=== PATIENT | female | born 1970 | race Caucasian/White ===

== ENCOUNTER 2018-01-01 21:23 | Inpatient (IN) | payer BC ==
[2018-01-01 23:09] LABS: #Basophils 0.1 thou/uL (0.0-0.2); #Eosinphils 0.2 thou/uL (0.0-0.7); #Lymphocytes 2.6 thou/uL (1.20-3.40); #Monocytes 0.6 thou/uL (0.11-0.59); #Neutrophils 5.4 thou/uL (1.40-6.50); %Basophils 0.7 % (0.0-1.0); %Eosinophils 2.6 % (0.0-10.0); %Lymphocytes 29.2 % (21.0-51.0); %Neutrophils 60.5 % (42.0-75.0); Hemoglobin 16.1 g/dL (12.0-16.0); Mean Corpuscular HGB CONC 35.5 g/dL (32.0-36.0); Mean Corpuscular Hemoglobin 31.1 pg (27.0-31.0); Mean Corpuscular Volume 87.6 fl (81.0-99.0); Mean Platelet Volume 8.7 fL (7.4-10.4); Platelet Count 288 thou/uL (130-400); RBC Distribution Width 12.8 % (11.5-14.5); Red Blood Cell (RBC) Count 5.17 mill/uL (4.20-5.40); White Blood Cell (WBC) Count 8.9 thou/uL (4.8-10.8)
[2018-01-01 23:20] LABS: ALT (SGPT) 42 U/L (8-55); AST (SGOT) 42 U/L (5-34); Albumin 3.4 g/dL (3.5-5.0); Alkaline Phosphatase 93 U/L (40-150); Anion Gap 17 mmol/L (10-20); BUN (Urea Nitrogen) 10 mg/dL (7.0-18.7); Bilirubin, Total Less than 0.2 mg/dL (0.2-1.2); Calc. Creatinine Clearance 0 mL/min (70-130); Calcium 9.6 mg/dL (7.8-10.44); Carbon Dioxide 25 mmol/L (22-29); Chloride 97 mmol/L (98-107); Estimated GFR-MDRD 78; Globulin 3.7 g/dL (2.4-3.5); Glucose 328 mg/dL (70-105); Potassium 4.5 mmol/L (3.5-5.1); Protein, Total 7.1 g/dL (6.0-8.3); Sodium 134 mmol/L (136-145)
[2018-01-02] MEDS ORDERED: Promethazine HCl 25 MG/ML VIAL ONE (00:13)
[2018-01-02] MEDS ORDERED: Labetalol HCl 100 MG/20 ML VIAL ONE (00:13)
[2018-01-02 00:48] LABS: Bilirubin Negative (Negative); Blood, Urine Moderate (Negative); Clarity CLEAR (Clear); Glucose, Urine (Dipstick) >=1000 mg/dL (Negative); Leukocyte Negative (Negative); Nitrite Negative (Negative); Protein, Urine (Dipstick) 300 mg/dL (Neg-Trace); Specific Gravity, Urine 1.019 (1.002-1.036); Urobilinogen 0.2 mg/dL (0.2-1.0)
[2018-01-02 00:51] LABS: Bacteria/HPF None Seen HPF (None Seen); Hyaline Casts/LPF 0-3 HYALINE CAST LPF (0-3 Hyaline); Squamous Epithelial 0-3 HPF (0-3); WBC/HPF None Seen HPF (0-3)
[2018-01-02 03:36] VITALS: BMI 26.0
[2018-01-02] MEDS ORDERED: Ondansetron ODT 4 MG TAB PO PRN (03:53)
[2018-01-02] MEDS ORDERED: Dextrose 5% in Water 1,000 ML IV PRN (03:53)
[2018-01-02] MEDS ORDERED: Labetalol HCl 100 MG/20 ML VIAL SLOW IVP PRN (03:53)
[2018-01-02] MEDS ORDERED: Dextrose 50% Abboject 50 ML SYRINGE SLOW IVP PRN (03:53)
[2018-01-02] MEDS ORDERED: Fioricet 325/50/40 mg Tablet PO PRN (03:53)
[2018-01-02] MEDS ORDERED: Promethazine 25 MG TAB PO PRN ×2 (04:24)
--- NOTE | 2018-01-02 04:28 | PDOC.FPRHP ---
- History of Present Illness Chief Complaint: JUÁREZ, N/V History of Present Illness: Patient is a 47yo with PMH of T2DM, HTN, CAD s/p CABG, and HLD who presents with 10 day hx of worsening JUÁREZ associated with N/V. She was seen at [facility] several days ago for JUÁREZ, where they did CT of her head and found nothing. She went home with Tylenol #3 and phenergan which didn't seem to help any. She was seen in the clinic on 01/01/18 and told that if pain worsened to come to ED. Pain is 10/10 on initial evaluation by ED physician. Pain is 8/10 at my evaluation. Pain is located at L frontal region and radiates to R frontal region on occasion and behind her L eye. Pain is throbbing in nature and worsened by lights, sounds, and ragland movements. She has no hx of migraines. She does have diagnosis of HTN though and was elevated in clinic today to 170 systolic and again elevated to 213 systolic on admission. She denies neck stiffness, vision changes, and fever. In regard to her N/V, she has not eaten in the past couple of days, and has also not taken her medication due to the N/ V. ED Course: Labetalol 10mg and Phenergan 12.5mg - Allergies/Adverse Reactions Allergies Allergy/AdvReac Type Severity Reaction Status Date / Time acetaminophen [From Vicodin] Allergy Nausea Verified 01/02/18 03:04 hydrocodone Allergy Nausea Verified 01/02/18 03:04 tramadol Allergy Nausea Verified 01/02/18 03:04 - Home Medications Medication Instructions Recorded Confirmed Type Amitriptyline HCl [Elavil] 50 mg PO HS 01/02/18 01/02/18 History Aspirin [Ecotrin] 81 mg PO DAILY 01/02/18 01/02/18 History Atorvastatin Calcium 40 mg PO HS 01/02/18 01/02/18 History Carvedilol [Coreg] 3.125 mg PO BID 01/02/18 01/02/18 History Gabapentin 600 mg PO TID 01/02/18 01/02/18 History Insulin Detemir 100 UNITS/ML 20 units SQ HS 01/02/18 01/02/18 History [Levemir] Lisinopril 2.5 mg PO DAILY 01/02/18 01/02/18 History Metronidazole [metroNIDAZOLE] 500 mg PO TID 01/02/18 01/02/18 History Pedi MV No.79/Ferrous Fumarate 1 tablet PO DAILY 01/02/18 01/02/18 History [Flintstones with Iron Chewable Tablet] Prasugrel HCl 10 mg PO QAM 01/02/18 01/02/18 History Promethazine [Phenergan] 25 mg PO Q6HR PRN 01/02/18 01/02/18 History metFORMIN [Glucophage] 500 mg PO BID-WM 01/02/18 01/02/18 History - History PMHx: PSHx: FHx: Social: - Review of Systems General: denies: fever/chills, weight/appetite/sleep changes, night sweats, fatigue Eyes: denies: eye pain, vision changes ENT: denies: nasal congestion, rhinorrhea Respiratory: denies: cough, congestion, shortness of breath Cardiovascular: denies: chest pain, palpitation, edema Gastrointestinal: reports: nausea, vomiting, diarrhea. denies: abdominal pain Genitourinary: reports: incontinence (occasional bowel incontinence with diarrhea). denies: dysuria, polyuria Skin: denies: rashes, lesions Musculoskeletal: reports: pain (JUÁREZ). denies: tenderness, stiffness, swelling, arthritis/arthralgias Neurological: denies: numbness, syncope, seizure Psychological: denies: anxiety, depression - Vital signs BP: 141/88 HR: 92 RR: 20 Tmax: 98.1 Pox: 98% on RA Wt: 75kg - Physical Exam Constitutional: NAD, awake, alert and oriented, well developed -Constitutional: Pain evident with movements, patient closing eyes due to light. HEENT: normocephalic and atraumatic, PERRLA, EOMI, conjunctiva clear, no scleral icterus, grossly normal vision, grossly normal hearing, MMM, oropharynx clear -HEENT: no sinus tenderness Neck: supple, FROM, no LAD Heart: RRR, normal S1/S2, no murmurs/rubs/gallops, pulses present Lungs: CTAB, no respiratory distress, good air movement, no wheezing Abdomen: soft, non-tender, bowel sounds present Musculoskeletal: normal structure, normal tone Neurological: no focal deficit, CN II-XII intact, normal sensation Skin: no rash/lesions, good turgor, capillary refill <2 seconds Psychiatric: normal mood and affect FMR H&P: Results - Labs Result Diagrams: 01/01/18 22:40 01/02/18 07:32 Lab results: WBC 8.9 thou/uL (4.8-10.8) 01/01/18 22:40 Hgb 16.1 g/dL (12.0-16.0) H 01/01/18 22:40 Hct 45.3 % (36.0-47.0) 01/01/18 22:40 MCV 87.6 fl (81.0-99.0) 01/01/18 22:40 Plt Count 288 thou/uL (130-400) 01/01/18 22:40 Neutrophils % 60.5 % (42.0-75.0) 01/01/18 22:40 Sodium 134 mmol/L (136-145) L 01/01/18 22:40 Potassium 4.5 mmol/L (3.5-5.1) 01/01/18 22:40 Chloride 97 mmol/L (98-107) L 01/01/18 22:40 Carbon Dioxide 25 mmol/L (22-29) 01/01/18 22:40 BUN 10 mg/dL (7.0-18.7) 01/01/18 22:40 Creatinine 0.79 mg/dL (0.6-1.1) 01/01/18 22:40 Glucose 328 mg/dL (70-105) H 01/01/18 22:40 Calcium 9.6 mg/dL (7.8-10.44) 01/01/18 22:40 Total Bilirubin Less than 0.2 mg/dL (0.2-1.2) L 01/01/18 22:40 AST 42 U/L (5-34) H 01/01/18 22:40 ALT 42 U/L (8-55) 01/01/18 22:40 Alkaline Phosphatase 93 U/L (40-150) 01/01/18 22:40 C-Reactive Protein Less than 0.50 mg/dL (= or < 0.5) 01/01/18 22:40 Serum Total Protein 7.1 g/dL (6.0-8.3) 01/01/18 22:40 Albumin 3.4 g/dL (3.5-5.0) L 01/01/18 22:40 Urine Ketones Negative mg/dL (Negative) 01/02/18 00:05 Urine Blood Moderate (Negative) H 01/02/18 00:05 Urine Nitrite Negative (Negative) 01/02/18 00:05 Ur Leukocyte Esterase Negative (Negative) 01/02/18 00:05 Urine RBC 11-20 HPF (0-3) H 01/02/18 00:05 Urine WBC None Seen HPF (0-3) 01/02/18 00:05 Ur Squamous Epith Cells 0-3 HPF (0-3) 01/02/18 00:05 Urine Bacteria None Seen HPF (None Seen) 01/02/18 00:05 FMR H&P: A/P - Problem List (1) Hypertensive urgency Current Visit: Yes Status: Acute Code(s): I16.0 - HYPERTENSIVE URGENCY (2) Migraine Current Visit: Yes Status: Acute Code(s): G43.909 - MIGRAINE, UNSP, NOT INTRACTABLE, WITHOUT STATUS MIGRAINOSUS (3) DM type 2 (diabetes mellitus, type 2) Current Visit: No Status: Chronic Qualifiers: Diabetes mellitus terminal superintendent insulin use: without terminal superintendent use Diabetes mellitus complication status: with unspecified complications Qualified Code(s) : E11.8 - Type 2 diabetes mellitus with unspecified complications (4) Hyperlipidemia Current Visit: Yes Status: Acute Code(s): E78.5 - HYPERLIPIDEMIA, UNSPECIFIED (5) CAD (coronary artery disease) Current Visit: Yes Status: Acute Code(s): I25.10 - ATHSCL HEART DISEASE OF [place] CORONARY ARTERY W/O ANG PCTRS (6) Diabetic neuropathy Current Visit: Yes Status: Acute Code(s): E11.40 - TYPE 2 DIABETES MELLITUS WITH DIABETIC NEUROPATHY, UNSP (7) Hypertension Current Visit: Yes Status: Acute Code(s): I10 - ESSENTIAL (PRIMARY) HYPERTENSION (8) Nausea & vomiting Current Visit: Yes Status: Acute Code(s): R11.2 - NAUSEA WITH VOMITING, UNSPECIFIED (9) Hematuria Current Visit: Yes Status: Acute Code(s): R31.9 - HEMATURIA, UNSPECIFIED - Plan Hypertensive Urgency - s/p Labetalol x2 - will continue to monitor and increase home meds as discussed below. Migraine without Aura - Fioricet prn - recent CThead done at [facility] without any findings - if fevers consider LP, but not indicated at this time. N/V - Patient not tolerating PO intake, will give maitenance fluids - Zofran prn HTN - increase Lisinopril to 5mg daily and monitor - continue other home medications T2DM - continue home levemir - ACHS accuchecks CAD s/p stent - continue prasugrel Diabetic Neuropathy - Continue Gabapentin Hematuria - No PE signs of nephrolithiasis S/P BKA - patient reports she is supposed to be on prophylactic Abx, but hasn't been taking them per ER physician at the [facility] - continue to hold Abx and have patient call surgeons office - Wound care consult for BID dressing changes Disposition/LOS: Length of hospital stay: < 2 days Likely d/c once HTN well controlled and JUÁREZ pain lessened. FMR H&P: Upper Level - Pertinent history PCP - Angel Crocker at [facility] Time Seen: 01/02/18 at 0210 CC: Headache Patient is a 47 year old white female who presents complaining of headache associated with nausea and vomiting which has been going on for about 10 days. She describes it as a frontal pressure like headache that has not changed much. She does not check her blood pressure at home and says she does not normally have high blood pressure. She reports occasionally feeling feverish but has not taken her temperature. She denies fevers, chills, visual disturbance, URI symptoms, chest pain, dyspnea, cough, wheezing, abdominal pain, dysuria, and polyuria. She reports chronic diarrhea (noted to have fecal incontinence in clinic records). In the ER she was seen by Dr. Osullivan, her BP was noted to be 213/106 (MAP 142) and 194/128 (MAP 150) at 2126 and 2231 respectively. She was given a dose of labetalol 10 mg iv at 00:09. Another dose was given at 01:08. Patient's BP was 166/106 (MAP 126) at 00:48 prior to second dose of labetalol. PMH - HTN, DM2, HLD, CAD, diabetic neuropathy, migraine headaches, nausea, vomiting, fecal incontinence with fecal urgency, stress urinary incontinence. PSH - Right BKA, hysterectomy, cholecystectomy, cardiac catherization with stent - Pertinent findings Vital Signs Tmax 98.1 RR 20 HR 91 BP 163/99 O2 sat 96% on RA Weight 79.38 kg Physical Exam: General: NAD, AAOx4. Eyes: EOMI, PERRL, nonicteric. Conjunctiva clear. ENT: Mucous membranes moist, oropharynx clear. Poor dentition CV: RRR. No murmurs, rubs or gallops auscultated. Pulses full equal in upper extremities Respiratory: CTAB, no wheezing, rales, or rhonchi. Nonlabored Abdomen: NT, ND, no guarding or rebound. No palpable or pulsating masses Extremities: No edema. Equal movements in all 4 extremities Right BKA Skin: No rash or ulcer. No palpable lesions Neuro: CN II - XII grossly intact. No focal deficits Psych: Mood and affect appropriate. Judgement and insight intact - Plan Date/Time: 01/02/18426 I, Benton Swanson DO, have evaluated this patient and agree with findings/plan as outlined by exercise science internship resident. Pertinent changes/additions are listed here. 47 year old white female presents with: 1) Hypertensive urgency - Admit to telemetry. Will shoot for gradual reduction of MAP by 25% in first 24 hours. MAP was as high as 150 before treatment in ED - 25% reduction would be 112. No evidence of end organ damage. May have been cause of headache 2) Intractable headache - Hypertensive urgency vs migraine without aura. Patient does have a history of migraines. Associated symptoms include nausea, vomiting, and photophobia. She reported mild improvement with treatment of blood pressure. 3) Hyponatremia - Mild. Repeat BMP in the morning 4) Diabetes mellitus type 2 - Home meds. Accuchecks, sliding scale insulin 5) CAD - Home meds (aspirin and prasugrel) 6) Hypertension - Home meds. Will need to be titrated up. 7) Hyperlipidemia - Home statin 8) Code status - Full
[2018-01-02] MEDS: Sodium Chloride 0.9% 1,000 ML IV SCH ×2 (04:47→13:49)
[2018-01-02 07:57] LABS: Anion Gap 12 mmol/L (10-20); BUN (Urea Nitrogen) 10 mg/dL (7.0-18.7); Calc. Creatinine Clearance 107 mL/min (70-130); Carbon Dioxide 27 mmol/L (22-29); Chloride 102 mmol/L (98-107); Estimated GFR-MDRD 80; Glucose 306 mg/dL (70-105); Potassium 3.5 mmol/L (3.5-5.1); Sodium 137 mmol/L (136-145)
[2018-01-02] MEDS: Aspirin 81 mg Enteric Coated Tablet PO SCH (08:44)
[2018-01-02] MEDS: Lisinopril 5 MG TAB PO SCH (08:44)
[2018-01-02] MEDS: Gabapentin 300 MG CAP PO SCH ×3 (08:44→20:04)
[2018-01-02] MEDS: metFORMIN 500 MG TAB PO SCH ×2 (08:44→17:05)
[2018-01-02] MEDS: Prasugrel 10 MG TAB PO SCH (08:45)
[2018-01-02] MEDS: Enoxaparin Sodium 40 MG/0.4 ML SYRINGE SC SCH (08:45)
[2018-01-02] MEDS: Insulin Detemir 100 UNITS/ML 20 UNITS in Admixture Fee 1 EACH SC SCH (08:56)
[2018-01-02] MEDS ORDERED: Carvedilol 3.125 MG TAB PO SCH (09:00)
[2018-01-02] MEDS ORDERED: Lisinopril 2.5 MG TAB PO SCH (09:00)
[2018-01-02] MEDS ORDERED: SUMAtriptan Succinate 25 MG TAB PO SCH (09:15)
[2018-01-02] MEDS ORDERED: Metoclopramide HCl 10 MG/2 ML VIAL IVP SCH (09:30)
[2018-01-02] MEDS ORDERED: Ketorolac Tromethamine 30 MG/ML VIAL IVP SCH ×2 (09:30→20:30)
[2018-01-02] MEDS ORDERED: diphenhydrAMINE 50 MG CAP PO SCH (09:30)
--- NOTE | 2018-01-02 11:53 | HP ---
I have reviewed the history and physical of Dr. Cinda Moreno. I have reviewed the case with her. I jessie do with her assessment and plan. HISTORY: Briefly, Ms. Pizarro is a 47-year-old white female with a history of type 2 diabetes, hyperten tulio, and coronary artery disease who presented with worsening headache associated with some nausea a nd vomiting. She was also noted to have a blood pressure of 220/110. She was admitted with hyperten sive urgency. She has been medicated and blood pressure is now nearing upper limits of normal. PHYSICAL EXAMINATION: GENERAL: She is awake, alert, in no distress. Still complaining of a slight headache, although not as severe as previously. VITAL SIGNS: Currently, her blood pressure is 150/73, pulse rate is 88, respirations 14. She is afe brile. ENT: No erythema or exudate. NECK: Supple. No JVD. CARDIAC: Heart rhythm regular. S4 gallop. No murmur or rub noted. LUNGS: Clear, without rales or wheezes. ABDOMEN: Flat and soft. No guarding, rebound or rigidity. NEUROLOGIC: No focal deficits noted. LABORATORY DATA: CBC: White count 8900, hemoglobin 16.1, hematocrit 45.3. Chemistry: Sodium 134, potassium 4.5, chloride 97, bicarbonate 25, BUN 10, creatinine 0.79, glucose 328. ASSESSMENT: Hypertensive urgency already improving. PLAN: Restart and adjust p.o. medications.
[2018-01-02] MEDS: HumaLOG 300 UNITS/3 ML VIAL SC PRN ×2 (13:48→17:10)
[2018-01-02] MEDS: metroNIDAZOLE 500 MG TAB PO SCH ×2 (15:33→20:03)
[2018-01-02] MEDS: Carvedilol 6.25 MG TAB PO SCH (17:05)
[2018-01-02] MEDS: Sulfameth/Trimethoprim DS 800-160mg TAB PO SCH (20:04)
[2018-01-02] MEDS ORDERED: Metoclopramide HCl 10 MG TAB PO SCH (20:30)
[2018-01-02] MEDS ORDERED: Insulin Detemir 100 UNITS/ML 20 UNITS in Admixture Fee 1 EACH SC SCH (21:00)
[2018-01-02] MEDS ORDERED: Amitriptyline HCl 25 MG TAB PO SCH (21:00)
[2018-01-02] MEDS ORDERED: Atorvastatin Calcium 40 MG TAB PO SCH (21:00)
[2018-01-03] MEDS: Acetaminophen 325 MG TAB PO PRN ×2 (01:09→11:35)
[2018-01-03] MEDS: Sodium Chloride 0.9% 1,000 ML IV SCH ×3 (02:30→13:25)
[2018-01-03] MEDS ORDERED: Ketorolac Tromethamine 30 MG/ML VIAL IVP PRN (05:35)
[2018-01-03] MEDS ORDERED: Metoclopramide HCl 10 MG/2 ML VIAL IVP PRN (05:39)
[2018-01-03] MEDS ORDERED: Clopidogrel Bisulfate 75 MG TAB ONE (06:24)
--- NOTE | 2018-01-03 08:18 | PDOC.FM ---
- Subjective Subjective: Pt reports headache pain rated at 3. This is much improved from yesterday. Reports having some diarrhea as well at this time. Denies any extreme abdominal pain. No chest pain or acute SOB. No other acute events overnight - Objective MAR Reviewed: Yes Vital Signs & Weight: Vital Signs (12 hours) Temp Pulse Resp BP Pulse Ox 01/03/18 03:57 97.6 F 71 16 129/62 97 Weight Admit Weight 75.478 kg Weight 78.471 kg I&O: 01/02/18 01/03/18 01/04/18 06:59 06:59 06:59 Intake Total 110 1920 Output Total 0 600 Balance 110 1320 Result Diagrams: 01/01/18 22:40 01/02/18 07:32 EKG Reviewed by me: Yes Radiology Reviewed by me: Yes (outside CT negative) Phys Exam - Physical Examination Constitutional: NAD HEENT: PERRLA, moist MMs, sclera anicteric Neck: no nodes, supple, full ROM Respiratory: no wheezing, no rales, no rhonchi, clear to auscultation bilateral Cardiovascular: RRR, no significant murmur, no rub Gastrointestinal: soft, non-tender, no distention hyperactive bowel sounds Musculoskeletal: no edema, pulses present Neurological: non-focal, normal sensation, moves all 4 limbs Lymphatic: no nodes Psychiatric: normal affect, A&O x 3 Skin: no rash, normal turgor, cap refill <2 seconds Dx/Plan (1) C. difficile diarrhea Code(s): A04.72 - ENTEROCOLITIS D/T CLOSTRIDIUM DIFFICILE, NOT SPCF RECUR Status: Acute (2) Hypertensive urgency Code(s): I16.0 - HYPERTENSIVE URGENCY Status: Acute (3) Migraine Code(s): G43.909 - MIGRAINE, UNSP, NOT INTRACTABLE, WITHOUT STATUS MIGRAINOSUS Status: Acute (4) Hyperlipidemia Code(s): E78.5 - HYPERLIPIDEMIA, UNSPECIFIED Status: Acute (5) CAD (coronary artery disease) Code(s): I25.10 - ATHSCL HEART DISEASE OF [place] CORONARY ARTERY W/O ANG PCTRS Status: Acute (6) Diabetic neuropathy Code(s): E11.40 - TYPE 2 DIABETES MELLITUS WITH DIABETIC NEUROPATHY, UNSP Status: Acute (7) Hypertension Code(s): I10 - ESSENTIAL (PRIMARY) HYPERTENSION Status: Acute - Plan Plan: Hypertensive Urgency - Increased carvedilol and lisinopril yesterday. BP lowered. Labetolol PRN Migraine without Aura - Fioricet prn -Headache Cocktail- Toradol, Reglan and Benadryll one time has decreased headache. -Will now try topamax as well for outpatient tx - recent CThead done at [facility] without any findings -BP lowered as well N/V/Diarrhea -C. diff positive.- on flagyl for wound. Will add on PO vanc at this time. Will continue to replace electrolytes as needed - Zofran prn HTN -Lisinopril and Carvediolo increased. BP lower and stable overnight - continue other home medications - T2DM - continue home levemir - ACHS accuchecks CAD s/p stent - continue prasugrel Diabetic Neuropathy - Continue Gabapentin Hematuria - No PE signs of nephrolithiasis S/P BKA - Restarted home abx flagyl and bactrim at this time - Wound care consult for BID dressing changes
[2018-01-03] MEDS: metroNIDAZOLE 500 MG TAB PO SCH ×2 (08:59→16:37)
[2018-01-03] MEDS: metFORMIN 500 MG TAB PO SCH (08:59)
[2018-01-03] MEDS ORDERED: FLUoxetine HCl 10 MG CAP PO SCH (09:00)
[2018-01-03] MEDS: Carvedilol 6.25 MG TAB PO SCH (09:00)
[2018-01-03] MEDS ORDERED: Topiramate 25 MG TAB PO SCH (09:00)
[2018-01-03] MEDS: Vancomycin HCl 25 MG/ML Oral PO SCH ×2 (09:08→13:26)
[2018-01-03] MEDS: Lisinopril 5 MG TAB PO SCH (09:08)
[2018-01-03] MEDS: Gabapentin 300 MG CAP PO SCH ×2 (09:08→16:37)
[2018-01-03] MEDS: HumaLOG 300 UNITS/3 ML VIAL SC PRN ×2 (09:09→13:25)
[2018-01-03] MEDS: Enoxaparin Sodium 40 MG/0.4 ML SYRINGE SC SCH (09:09)
[2018-01-03] MEDS: Sulfameth/Trimethoprim DS 800-160mg TAB PO SCH (09:10)
[2018-01-03] MEDS: Prasugrel 10 MG TAB PO SCH (09:10)
[2018-01-03] MEDS: Aspirin 81 mg Enteric Coated Tablet PO SCH (09:11)
[2018-01-03] MEDS: Insulin Detemir 100 UNITS/ML 20 UNITS in Admixture Fee 1 EACH SC SCH (09:33)
--- NOTE | 2018-01-03 12:30 | ADD-PRG ---
DATE OF SERVICE: 01/03/2018 ADDENDUM This is an addendum to the note of Dr. Tyler Butler. SUBJECTIVE: Ms. Pizarro looks and feels much better this morning. She has only a very slight headache. She is anxious for discharge. She was having some diarrhea and was C. diff antigen positive, but t oxin negative. This could be followed up as an outpatient in several days. In the event, she is loo rosanna and feeling much better and will be discharged today.
[2018-01-03 12:51] VITALS: BP 149/72; TEMP 98
--- NOTE | 2018-01-04 12:47 | DIS-2 ---
DATE OF ADMISSION: 01/02/2018 DATE OF DISCHARGE: 01/03/2018 ADMITTING ATTENDING: Dr. Guillermo Jordan DISCHARGE ATTENDING: Dr. Guillermo Jordan CONSULTATIONS: None. PROCEDURES: None. IMAGING: None. PRIMARY DIAGNOSES: 1. Hypertensive urgency. 2. Intractable migraine. 3. Hyperlipidemia. 4. Coronary artery disease. 5. Diabetic neuropathy. 6. Hypertension. 7. Clostridium difficile antigen diarrhea. DISCHARGE CHANGES IN MEDICATIONS: We increased her carvedilol to 6.25 mg started her medications. 1. Amitriptyline 50 mg p.o. at bedtime. 2. Aspirin 81 mg p.o. daily. 3. Atorvastatin 40 mg p.o. at bedtime. 4. Gabapentin 600 mg p.o. t.i.d. 5. Insulin 20 units in the morning and 20 units at night, and that is Detemir and Levemir. 6. Metformin 500 mg p.o. b.i.d. 7. Metronidazole 500 mg p.o. t.i.d. 8. Flintstones with iron chewable tablet 1 tablet daily. 9. Prasugrel HCL 20 mg p.o. q.a.m. 10. Promethazine 25 mg p.o. q.6 hours. 11. Bactrim 1 tab p.o. b.i.d. 12. Topiramate 25 mg p.o. b.i.d. DISCONTINUED MEDICATIONS: Fioricet, Toradol, Benadryl, and Reglan. HISTORY OF PRESENT ILLNESS AND BRIEF HOSPITAL COURSE: This is a 47-year-old with past medical histor y of type 2 diabetes, hypertension, coronary artery disease, status post CABG and hyperlipidemia with also a recent surgery of below the knee amputation who presents with a 10-day history of headache wi th nausea and vomiting. She was seen at [facility] earlier in the week where they did a CT of the head which was negative. She then came to a clinic, was at an outside clinic where they tried giving Zofr an as well for the vomiting. She says the headache was in the right frontal region and behind her le ft eye was throbbing in nature and worsened in lights. When we admitted her, her blood pressure was 163/99. At one point, her blood pressure was above the 200s. At this time she was admitted with hy pertensive urgency with the intractable migraine. At this time, we gave her some labetalol and lower ed her blood pressure. Then while she was here, her blood pressures stayed pretty elevated around 18 . At this time, her blood pressures were somewhat elevated, so we increased her carvedilol from 3.125 to 6.125 mg. The Fioricet she got did not help her headache upon admission, so then we gave he r a headache cocktail which included Toradol, Reglan and Benadryl, and then continued on with Fioric et. We then assessed her the next day. She said she was doing much better and rated her headache at 3. We talked with her about migraine, continued amitriptyline and promethazine when she had been on previously. We also at this time decided to add on Topamax for headache prevention, started her out at 25 mg b.i.d. and recommended that she will increase the dose as needed if she keeps getting heada ches, she could increase the dose up by increments of 25 b.i.d. At this time, the patient was ready to go home. Also, when she got here, she had the below the knee amputation. She was told by an [facility] ER doctor to quit taking her Bactrim due to potassium. We followed her potassium. It was never elevated or low. Per the recommendations of her surgeon it was recommended she be on his medication, so we restarted her Bactrim and Flagyl as well while she was here and told her that there was no con cern with potassium at this time. Also, on the first day, she was here she had about 6 episodes of diarrhea. We got a Clostridium diff icile, Clostridium difficile was positive for antigen, but not the toxin. She had had C. diff recent ly in the past from previous hospitalizations at [facility]. So at this time we decided that she did no t need to be treated as she did not have episodes of diarrhea on the on the day of discharge. DISPOSITION: Stable. DISCHARGE LOCATION: Home. ACTIVITY: As tolerated. DIET: Diabetic diet. FOLLOWUP: She will need to follow up with her primary care physician within 14 days for hospital fol lowup and will need to follow up with her surgeon for her fqfru-afv-noke amputation and to determine how long to continue taking the antibiotics.
== END 2018-01-03 15:52 | disposition home or self-care (01) | DRG 103 ==
LOC: ERS 21:23 → 2NO 01-02 01:12
PROVIDERS: ADMIT Family Medicine; ATTEND Family Medicine
DX: G43.919 Migraine, unspecified, intractable, without status migrainosus (principal); E11.40 Type 2 diabetes mellitus with diabetic neuropathy, unspecified; A04.72 Enterocolitis due to Clostridium difficile, not specified as recurrent; E87.1 Hypo-osmolality and hyponatremia; I16.0 Hypertensive urgency; E78.5 Hyperlipidemia, unspecified; I10 Essential (primary) hypertension; I25.10 Atherosclerotic heart disease of native coronary artery without angina pectoris; Z95.1 Presence of aortocoronary bypass graft; Z95.5 Presence of coronary angioplasty implant and graft; Z89.511 Acquired absence of right leg below knee; Z79.2 Long term (current) use of antibiotics
CPT/HCPCS: 36416; 80048; 80053; 81003; 81015; 85025; 86140; 87324; 87449; 87493; 93005; 96374; 96375; 96376; A4216; J1650; J1815; J1885; J2550; J2765

== ENCOUNTER 2019-07-10 05:42 | Inpatient (IN) | payer BC, MEDICARE, SELFPAY ==
[2019-07-10 06:41] LABS: #Lymphocytes 1.4 thou/uL (1.20-3.40); #Monocytes 1.3 thou/uL (0.11-0.59); #Neutrophils 15.2 thou/uL (1.40-6.50); %Basophils 0.3 % (0.0-1.0); %Eosinophils 0.2 % (0.0-10.0); %Lymphocytes 7.9 % (21.0-51.0); %Monocytes 7.4 % (0.0-10.0); %Neutrophils 84.3 % (42.0-75.0); Hemoglobin 15.7 g/dL (12.0-16.0); Mean Corpuscular HGB CONC 33.2 g/dL (32.0-36.0); Mean Corpuscular Hemoglobin 29.4 pg (27.0-31.0); Mean Corpuscular Volume 88.5 fL (78.0-98.0); Mean Platelet Volume 8.6 fL (7.4-10.4); Platelet Count 326 thou/uL (130-400); Red Blood Cell (RBC) Count 5.33 mill/uL (4.20-5.40); White Blood Cell (WBC) Count 18.1 thou/uL (4.8-10.8)
[2019-07-10 07:02] LABS: ALT (SGPT) 16 U/L (8-55); AST (SGOT) 16 U/L (5-34); Albumin 3.4 g/dL (3.5-5.0); Alkaline Phosphatase 82 U/L (40-110); Anion Gap 17 mmol/L (10-20); BUN (Urea Nitrogen) 11 mg/dL (7.0-18.7); Bilirubin, Total 0.3 mg/dL (0.2-1.2); Calc. Creatinine Clearance 0 mL/min (70-130); Calcium 8.9 mg/dL (7.8-10.44); Carbon Dioxide 20 mmol/L (22-29); Chloride 101 mmol/L (98-107); Estimated GFR-MDRD 51; Globulin 2.7 g/dL (2.4-3.5); Glucose 376 mg/dL (70-105); Potassium 4.1 mmol/L (3.5-5.1); Protein, Total 6.1 g/dL (6.0-8.3); Sodium 134 mmol/L (136-145)
[2019-07-10 07:37] LABS: CKMB 0.7 ng/mL (0-6.6)
--- NOTE | 2019-07-10 08:11 | RAD ---
SINGLE VIEW CHEST: Date: 07/10/19 COMPARISON: 11/10/16. HISTORY: Fall. Chest pain. Altered mental status. FINDINGS: A single view of the chest was performed. This is limited secondary to rotation. The cardiomediastina l silhouette is normal in size. There is no evidence of consolidation, mass, or pleural effusion. IMPRESSION: No evidence of acute cardiopulmonary disease. POS: C
[2019-07-10] MEDS ORDERED: HumaLOG 300 UNITS/3 ML VIAL SC PRN (09:17)
[2019-07-10] MEDS ORDERED: Dextrose 50% Abboject 50 ML SYRINGE SLOW IVP PRN (09:17)
[2019-07-10] MEDS ORDERED: Dextrose 5% in Water 1,000 ML IV PRN (09:17)
[2019-07-10] MEDS ORDERED: Ondansetron PF 4 MG/2 ML Vial IVP PRN (09:17)
[2019-07-10] MEDS ORDERED: hydrALAZINE 20 MG/ML VIAL SLOW IVP PRN (09:17)
[2019-07-10] MEDS ORDERED: Ondansetron ODT 4 MG TAB SL PRN (09:17)
[2019-07-10] MEDS ORDERED: Aspirin 325 mg Enteric Coated Tablet PO SCH (09:30)
[2019-07-10] MEDS ORDERED: Enoxaparin Sodium 30 MG/0.3 ML SYRINGE ONE (09:47)
[2019-07-10] MEDS ORDERED: Prasugrel 10 MG TAB ONE (09:47)
[2019-07-10] MEDS ORDERED: Aspirin 325 MG TAB ONE (09:47)
--- NOTE | 2019-07-10 10:23 | ULT ---
LEFT LOWER EXTREMITY ARTERIAL DOPPLER STUDY: Date: 07/10/19 Ultrasound and Doppler studies performed of the arteries of the left lower extremity. Color Doppler, spectral analysis, and velocity recordings obtained. INDICATION: Decreased left lower extremity pulses. FINDINGS: Left common femoral artery shows a biphasic waveform with normal velocities. The profunda shows a biphasic waveform. The proximal left superficial femoral artery shows a biphasic waveform with slightly reduced velocity . There appears to be occlusion of the mid left superficial femoral artery. There is evidence of revers al of flow seen in the distal left superficial femoral artery which probably indicates collateral rec onstitution. There is evidence of collateral reconstitution from the profunda to the distal left lower extremity. There is flow seen in the popliteal, which is biphasic. Biphasic flow is also seen in the anterior ti bial and dorsal pedis. No flow is seen in the posterior tibial. IMPRESSION: Evidence of severe arterial disease beginning in the mid thigh of the left lower extremity. Suggest c orrelation with CTA or catheter angiogram for better characterization. POS: [facility]
--- NOTE | 2019-07-10 10:35 | CT ---
PRELIMINARY REPORT/[facility]/EMERGENCY AFTER HOURS PROCEDURE: PROCEDURE INFORMATION: Exam: CT Head Without Contrast Exam date and time: 07/10/2019 5:59 AM Clinical history: 48 years old, female; Altered mental status/memory loss; Patient HX: Vrc. Morales moss history obtained from EMS, 48 y/o F presents to ED via EMS transport S/P fall at 0500. Per daughter , who lives with PT, PT had gotten out of bed to use the restroom prior to fall. She fell in the bathroom and was unable to get up on her own due to weakness. Following the fall, PT began vomiting. Daughter also reported to EMS PT with L sided weakness and L facial droop that began within the last 24 hours; X 3 days of pt's C/O JUÁREZ and AMS. TECHNIQUE: Imaging protocol: Computed tomography of the head without contrast. COMPARISON: No relevant prior studies available. FINDINGS: Brain: No hemorrhage. Patchy whitte matter hypodensities are nonspecific but may be seen in small vessel chronic ischemic changes. No mass effect. Ventricles: No ventriculomegaly. Bones/joints: Unremarkable. No acute fracture. Sinuses: Visualized sinuses are unremarkable. No fluid levels. Mastoid air cells: Visualized mastoid air cells are well aerated. Soft tissues: Unremarkable. IMPRESSION: No acute intracranial abnormality. Thank you for allowing us to participate in the care of your patient. Dictated and Authenticated by: Mayela Sheppard MD 07/10/2019 6:14 AM Central Time ([place] & [place]) FINAL REPORT CT BRAIN WITHOUT CONTRAST: I agree with the preliminary report given by Geovanna. POS: [facility]
--- NOTE | 2019-07-10 10:38 | CT ---
PRELIMINARY REPORT/[facility]/EMERGENCY AFTER HOURS PROCEDURE: PROCEDURE INFORMATION: Exam: CT Angiography Head Without And With Contrast Exam date and time: 07/10/2019 6:00 AM Clinical history: 48 years old, female; Patient HX: Yoselyn. . . . Additional history obtained from EMS, 48 y/o F presents to ED via EMS transport S/P fall at 0500. Per daughter, who lives with PT, PT had laurie palm out of bed to use the restroom prior to fall. She fell in the bathroom and was unable to get up on her own due to weakness. Following the fall, PT began vomiting. Daughter also reported to EMS PT with L sided weakness and L facial droop that began within the last 24 hours; X 3 days of pt's C/O JUÁREZ and AMS. TECHNIQUE: Imaging protocol: Computed tomographic angiography of the head without and with intravenous contrast. 3D rendering: MIP reconstructed images were created and reviewed. COMPARISON: No relevant prior studies available. FINDINGS: Right internal carotid artery: Unremarkable. Intracranial segment is patent with no significant steno sis. No aneurysm. Right anterior cerebral artery: Unremarkable. No occlusion or significant stenosis. No aneurysm. Right middle cerebral artery: Unremarkable. No occlusion or significant stenosis. No aneurysm. Right posterior cerebral artery: Unremarkable. No occlusion or significant stenosis. No aneurysm. Right vertebral artery: Unremarkable. No occlusion or significant stenosis. No aneurysm. Left internal carotid artery: Unremarkable. Intracranial segment is patent with no significant stenos is. No aneurysm. Left anterior cerebral artery: Unremarkable. No occlusion or significant stenosis. No aneurysm. Left middle cerebral artery: Unremarkable. No occlusion or significant stenosis. No aneurysm. Left posterior cerebral artery: Unremarkable. No occlusion or significant stenosis. No aneurysm. Left vertebral artery: Unremarkable. No occlusion or significant stenosis. No aneurysm. Basilar artery: Unremarkable. No occlusion or significant stenosis. No aneurysm. HEAD: Brain: No hemorrhage. Patchy whitte matter hypodensities are nonspecific but may be seen in small ves colin chronic ischemic changes. No mass effect. Ventricles: No ventriculomegaly. Bones/joints: Unremarkable. No acute fracture. Sinuses: Visualized sinuses are normal. No fluid levels. Mastoid air cells: Visualized mastoids are normal. No mastoid effusion. Soft tissues: Unremarkable. IMPRESSION: No acute findings. PROCEDURE INFORMATION: Exam: CT Angiography Neck With Contrast Exam date and time: 07/10/2019 6:00 AM Clinical history: 48 years old, female; Patient HX: Vrc. . . . Additional history obtained from EMS, 48 y/o F presents to ED via EMS transport S/P fall at 0500. Per daughter, who lives with PT, PT had laurie palm out of bed to use the restroom prior to fall. She fell in the bathroom and was unable to get up on her own due to weakness. Following the fall, PT began vomiting. Daughter also reported to EMS PT with L sided weakness and L facial droop that began within the last 24 hours; X 3 days of pt's C/O JUÁREZ and AMS. TECHNIQUE: Imaging protocol: Computed tomography angiography of the neck with intravenous contrast. 3D rendering: MIP reconstructed images were created and reviewed. COMPARISON: No relevant prior studies available. FINDINGS: VASCULATURE: Right common carotid artery: No stenosis. No dissection or occlusion. Right internal carotid artery: Unremarkable extracranial segment. No stenosis. No dissection or occlu tulio. Right external carotid artery: No occlusion or stenosis of the origin. Right vertebral artery: No stenosis. No dissection or occlusion. Left common carotid artery: No stenosis. No dissection or occlusion. Left internal carotid artery: Unremarkable extracranial segment. No stenosis. No dissection or occlus ion. Left external carotid artery: No occlusion or stenosis of the origin. Left vertebral artery: No stenosis. No dissection or occlusion. NECK: Bones/joints: No acute fracture. Soft tissues: No significant soft tissue swelling. IMPRESSION: No acute findings. COMMENT: Reference per NASCET criteria for degree of stenosis: Mild: less than 50% stenosis. Moderate: 50-69% stenosis. Severe: 70-94% stenosis. Near occlusion: 95-99% stenosis. Thank you for allowing us to participate in the care of your patient. Dictated and Authenticated by: Mayela Sheppard MD 07/10/2019 6:21 AM Central Time ([place] & [place]) FINAL REPORT CT ANGIOGRAM HEAD AND NECK: Date: 07/10/19 HISTORY: Fall. Emesis. Left-sided weakness and left facial droop. COMPARISON: None. TECHNIQUE: CT angiogram of head and neck are performed in the axial plane. Three-dimensional reformatted images are submitted for interpretation. FINDINGS: POSTCONTRAST HEAD CT: No pathologic enhancement of the brain parenchyma. POSTCONTRAST SOFT TISSUE NECK CT: No acute abnormality. Patent aerodigestive tract. Symmetric attenuation of the salivary glands. No ev idence of lymphadenopathy. Varying degrees of central canal stenosis and foraminal narrowing on the b asis of degenerative change. CT ANGIOGRAM NECK: No evidence of significant stenosis based upon NASCET criteria. CT ANGIOGRAM HEAD: No evidence of significant stenosis. IMPRESSION: This report is in agreement with the preliminary report by Geovanna. Unremarkable CT angiogram of the hea d and neck. POS: [facility]
--- NOTE | 2019-07-10 11:05 | HP ---
PRIMARY CARE PHYSICIAN: Dr. Vasquez. CHIEF COMPLAINT: "I fell in the bathroom and couldn't get up." HISTORY OF PRESENT ILLNESS: Ms. Pizarro is a 48-year-old female who has a history of diabetes and hypertension. She also has a history of recent right dajre-gqe-mbpe amputation approximately a year ago, who usually ambulates with a walker in her home and last night she got up to go to the bathroom and apparently fell according to the daughter and was unable to get up. She also has been complaining of headaches off and on and her daughter noticed a facial droop and she appeared to be weak on her left side. Her daughter also noted that she has been having headaches off and on. When she was brought to the emergency room, apparently she was very lethargic and noncommunicative. There was concern for possible stroke. A stat CT was done, which was negative as well as a CT angio of the [place], which was negative for any evidence of bleed or evidence of embolic phenomenon and she is being admitted for further evaluation. By the time I came to see her, she appears to be back to her baseline. She was awake and alert and oriented. Her main concern is pain in both arms as well as her neck. She says that she has chronic pain and she attributes that to diabetic neuropathy. She says she has it in both her hands as well as her legs. She says she has only had gabapentin and is asking for medication for pain. She also complains of a headache off and on. She does not really give much detail from the events that initially brought her to the hospital. She is also moving all of her extremities. REVIEW OF SYSTEMS: Essentially unobtainable due to the patient being more or less a poor historian. PAST MEDICAL HISTORY: Significant for diabetes mellitus, hypertension, and possible coronary artery disease as written in the chart. PAST SURGICAL HISTORY: She has had a cholecystectomy, hysterectomy, and amputation of the right leg due to a diabetic ulcer about a year ago. ALLERGIES: TRAMADOL, WHICH SHE SAYS SHE IS INTOLERANT TO, ALSO LISTED ARE HYDROCODONE AND ACETAMINOPHEN. FAMILY HISTORY: Significant for diabetes, hypertension, cerebral vascular disease, and cancer. SOCIAL HISTORY: She is a nonsmoker and nondrinker. She , has 2 children. CURRENT MEDICATIONS: Include; 1. Zoloft 75 mg daily. 2. Tizanidine 4 mg p.r.n. 3. Oxybutynin 15 mg daily. 4. Effient 10 mg daily. 5. Gabapentin 600 mg daily. 6. Aspirin 81 mg a day. 7. Lisinopril 2.5 mg daily. 8. Lisinopril 20 mg daily. 9. Carvedilol 6.25 mg twice a day. 10. Metformin 500 mg twice daily. PHYSICAL EXAMINATION: GENERAL: She is alert and oriented. She is a bit disheveled in appearance. She is well developed and well nourished. VITAL SIGNS: Her blood pressure is 130/86, heart rate is 110, respiratory rate of 22, and she is afebrile. HEENT: Her pupils are equal, round, and reactive. Extraocular muscles are intact. Sclerae are anicteric. Throat, no erythema, no exudates. NECK: No adenopathy. No bruits. LUNGS: Clear to auscultation. No wheezing. No rales. No rhonchi. CARDIOVASCULAR: She has normal S1 and S2. No S3 or S4. No murmurs, clicks, or rubs. ABDOMEN: Soft. She has some diffuse tenderness. No rebound or guarding. EXTREMITIES: She has a right sazpm-bay-iidx amputation. There is no skin breakdown on the stump. On the left lower extremity, she has chronic venous stasis changes, some hyperpigmentation of her feet. Hammertoe deformities. NEUROLOGIC: She has a little bit of a poor effort, but she is moving all extremities. She appears to be guarding the left upper extremity, but she is able to move it. She is able to intermediate accountant my hand and her cranial nerves are grossly intact. SKIN AND INTEGUMENT: Again, she has some venous stasis changes, but no ulcerations. It is also noted that her dorsalis pedis and posterior tibial pulses on the left are not palpable. LABORATORY DATA AND IMAGING: Her white blood cell count is 18.1, hemoglobin 15.7, hematocrit is 47.2, and platelet count is 326. Sodium 134, potassium 4.1, chloride is 101, CO2 is 20, BUN of 11, creatinine 1.14, and glucose is 376. Troponin was elevated at 0.031. She had a chest x-ray, which was negative by my reading and CT is reported as being negative. ASSESSMENT AND PLAN: 1. This is a 48-year-old female, who presents to the emergency room with altered mental status and a fall. There was concern for possible transient ischemic attack symptoms with left-sided weakness. She also apparently has severe pain, which she attributes to diabetic neuropathy, which is chronic. She will be admitted to the Stroke Unit. We will continue the workup for possible transient ischemic attack versus stroke with an MRI of the brain and an echocardiogram. 2. Chronic pain due to diabetic neuropathy. Unfortunately, the patient expresses several allergies. We will need to try to figure out a regimen that will be effective for her. 3. Peripheral vascular disease. We will get arterial Dopplers of the left lower extremity and likely she may need arteriogram and should she has significant peripheral vascular disease, we will see if it is an area that could be revascularized given she has already lost her right leg, diabetes mellitus. We need to hold the metformin given we may need to give a contrasted study and she has already had a CTA scan and place her on a sliding-scale insulin. 4. Hypertension. We will reconcile and restart her home medications plus a p.r.n.'s. 5. Continue to trend her cardiac enzymes. Place her on deep venous thrombosis and gastrointestinal prophylaxis and further recommendations to follow. Job ID: [id number]
[2019-07-10] MEDS ORDERED: Iopamidol 370 76% 100 ML VIAL ONE (11:24)
[2019-07-10 11:50] VITALS: BMI 24.7
[2019-07-10] MEDS ORDERED: Lorazepam 2 MG/ML VIAL SLOW IVP PRN (12:54)
[2019-07-10] MEDS: Gabapentin 300 MG CAP PO SCH ×2 (15:56→20:36)
[2019-07-10] MEDS: Carvedilol 6.25 MG TAB PO SCH (17:21)
[2019-07-10] MEDS ORDERED: Lice Shampoo 120 ML BOT TOP SCH (17:30)
[2019-07-10] MEDS: HumaLOG 300 UNITS/3 ML VIAL SC PRN (19:26)
[2019-07-10] MEDS: Sodium Chloride 0.9% 1,000 ML IV SCH (19:40)
[2019-07-10] MEDS: Ibuprofen 600 MG TAB PO PRN (19:40)
[2019-07-10] MEDS: Atorvastatin Calcium 40 MG TAB PO SCH (20:36)
[2019-07-11] MEDS: Ibuprofen 600 MG TAB PO PRN ×2 (02:51→10:05)
[2019-07-11 04:20] LABS: #Basophils 0.1 thou/uL (0.0-0.2); #Lymphocytes 4.2 thou/uL (1.20-3.40); #Monocytes 1.7 thou/uL (0.11-0.59); #Neutrophils 7.2 thou/uL (1.40-6.50); %Basophils 0.7 % (0.0-1.0); %Eosinophils 0.2 % (0.0-10.0); %Lymphocytes 31.8 % (21.0-51.0); %Monocytes 12.8 % (0.0-10.0); %Neutrophils 54.5 % (42.0-75.0); Mean Corpuscular HGB CONC 33.7 g/dL (32.0-36.0); Mean Corpuscular Hemoglobin 30.1 pg (27.0-31.0); Mean Corpuscular Volume 89.5 fL (78.0-98.0); Mean Platelet Volume 8.3 fL (7.4-10.4); Platelet Count 261 thou/uL (130-400); RBC Distribution Width 12.9 % (11.5-14.5); White Blood Cell (WBC) Count 13.2 thou/uL (4.8-10.8)
[2019-07-11 04:36] LABS: Lactic Acid 2.7 mmol/L (0.5-2.2)
[2019-07-11 04:40] LABS: Anion Gap 10 mmol/L (10-20); BUN (Urea Nitrogen) 15 mg/dL (7.0-18.7); Calc. Creatinine Clearance 82 mL/min (70-130); Calcium 8.7 mg/dL (7.8-10.44); Carbon Dioxide 28 mmol/L (22-29); Cardiac Risk 8.5 (Less than 4.5); Chloride 102 mmol/L (98-107); Cholesterol 254 mg/dl (< 200 Desired); Estimated GFR-MDRD 62; Glucose 136 mg/dL (70-105); HDL Cholesterol 30 mg/dL (>60 Neg Risk); Potassium 3.4 mmol/L (3.5-5.1); Sodium 137 mmol/L (136-145); Triglycerides 518 mg/dL (Less than 150)
[2019-07-11] MEDS ORDERED: Lorazepam 2 MG/ML VIAL SLOW IVP SCH (08:30)
[2019-07-11] MEDS ORDERED: FLU VACC QS2019-20(6MOS UP)/PF 60 MCG/0.5 ML SYRINGE IM ONE (09:00)
[2019-07-11] MEDS: Prasugrel 10 MG TAB PO SCH (10:01)
[2019-07-11] MEDS: Carvedilol 6.25 MG TAB PO SCH ×2 (10:02→17:50)
[2019-07-11] MEDS: Aspirin 325 mg Enteric Coated Tablet PO SCH (10:02)
[2019-07-11] MEDS: Gabapentin 300 MG CAP PO SCH ×3 (10:02→22:07)
[2019-07-11] MEDS: Enoxaparin Sodium 30 MG/0.3 ML SYRINGE SC SCH (10:04)
[2019-07-11] MEDS: HumaLOG 300 UNITS/3 ML VIAL SC PRN ×2 (12:18→17:50)
--- NOTE | 2019-07-11 14:02 | CT ---
CTA ABDOMEN AND PELVIS AND BILATERAL LOWER EXTREMITIES: INDICATIONS: Peripheral vascular disease left leg. TECHNIQUE: Axial tomograms obtained with multiplanar reconstruction and 3D post processing. FINDINGS: There is suboptimal arterial phase enhancement. The abdominal aorta shows atherosclerotic change. The aorta is of normal caliber. There is peripheral calcification and thrombus with luminal narrowing in the distal abdominal aorta. The origin of the celiac artery and superior mesenteric artery is patent with no stenosis. There is n o evidence of renal artery stenosis. The aortic bifurcation is patent. There is calcification in both proximal iliac arteries. There is high grade stenosis in the left common iliac, just beyond its origin, estimated at greater t varela 80% diameter by NASCET criteria. Left lower extremity: Atherosclerotic change and stenosis seen in the left internal iliac. External i liac is patent. There are operative changes of the left common femoral with surgical clips. There is a left fem/pop g raft which appears patent. The tanana superficial femoral artery is occluded. The popliteal at the knee space is patent. The popliteal trifurcates below the knee. There is diffuse disease below the knee in all the arteries. The posterior tibia occludes in the distal calf but irina nstitutes at the ankle. The peroneal and anterior tibia are patent to the ankle. RIGHT LOWER EXTREMITY: There is diffuse disease in the right internal iliac with high grade stenosis. The right external iliac shows mild to moderate stenosis. The right common femoral shows significant stenosis which does appear hemodynamically significant, in the 50% diameter range. The profunda is patent. There is high grade stenosis at the origin of the right superficial femoral artery. This artery occlu mack in the proximal thigh. The popliteal reconstitutes collaterals. This vessel is small. There is a right BK amputation. Soft tissue: Chronic lung parenchymal change. Liver, spleen and pancreas unremarkable. Kidneys unremarkable. Bowel loops unremarkable. There is a Castellano catheter in place. The urinary bladder wall appears thickened. IMPRESSION: 1. Atherosclerotic changes involving the abdominal aorta with luminal narrowing in the distal abdomin al aorta. 2. High grade stenosis in the left common iliac, just beyond its origin. 3. A left femoral/popliteal graft is patent. 4. Occlusion of the left posterior tibia, mid calf region. 5. Occlusion of the right superficial femoral artery with reconstitution of the right popliteal as de scribed above. 6. Incidentally noted on soft tissue evaluation is thickening of the urinary bladder wall. POS: C
--- NOTE | 2019-07-11 15:40 | RAD ---
LEFT SHOULDER 3 VIEWS: HISTORY: Fall, left shoulder pain FINDINGS: There are fractures involving the neck and greater tuberosity of the left proximal humerus. Mild angulation is noted.
[2019-07-11] MEDS: Sodium Chloride 0.9% 1,000 ML IV SCH (16:01)
[2019-07-11] MEDS: Acetaminophen/Codeine 30-300mg Tablet PO PRN (17:54)
--- NOTE | 2019-07-11 18:03 | PDOC.HOSPP ---
- Subjective Encounter Date: 07/11/19 Encounter Time: 18:01 Subjective: Ms. Pizarro was seen today in follow-up of arm pain, and confusion. She is back to her baseline, but complaints of severe pain in her left shoulder, and she is guarding it. - Objective Vital Signs & Weight: Vital Signs (12 hours) Temp Pulse Pulse Pulse Resp BP BP 07/11/19 16:00 97.9 F 77 18 07/11/19 11:00 97.7 F 78 16 07/11/19 10:02 148/69 H 07/11/19 09:30 79 82 143/68 H 07/11/19 09:13 79 82 143/68 H 07/11/19 08:00 07/11/19 07:53 98.5 F 65 18 07/11/19 07:52 99.9 F H 83 18 BP BP Pulse Ox 07/11/19 16:00 123/59 L 91 L 07/11/19 11:00 114/62 98 07/11/19 10:02 07/11/19 09:30 148/69 H 07/11/19 09:13 148/69 H 07/11/19 08:00 96 07/11/19 07:53 141/78 H 96 07/11/19 07:52 128/63 96 Weight Weight 158 lb 3.2 oz Result Diagrams: 07/11/19 04:11 07/11/19 04:11 Additional Labs: Accuchecks 07/11/19 07/11/19 07/11/19 17:09 11:45 06:08 POC Glucose 251 H 184 H 128 H 07/10/19 21:58 POC Glucose 391 H Hospitalist ROS - Medication Medications: Active Medications Generic Name Dose Route Start Last Admin Trade Name Freq PRN Reason Stop Dose Admin Aspirin 325 mg 07/11/19 09:00 07/11/19 10:02 Ecotrin PO 325 mg DAILY KAR Administration Atorvastatin Calcium 40 mg 07/10/19 21:00 07/10/19 20:36 Lipitor PO 40 mg HS KAR Administration Carvedilol 6.25 mg 07/10/19 17:00 07/11/19 10:02 Coreg PO 6.25 mg BID-WM KAR Administration Enoxaparin Sodium 30 mg 07/11/19 09:00 07/11/19 10:04 Lovenox SC 30 mg 0900 KAR Administration Gabapentin 600 mg 07/10/19 15:00 07/11/19 15:55 Neurontin PO 600 mg TID KAR Administration Sodium Chloride 1,000 mls @ 75 mls/hr 07/10/19 17:45 07/11/19 16:01 Normal Saline 0.9% IV 1,000 mls .[id number] KAR Administration Ibuprofen 600 mg 07/10/19 17:42 07/11/19 10:05 Motrin PO 600 mg Q6H PRN Administration Fever>101/(Mi/Mod/Sev) Pain Insulin Human Lispro 0 units 07/10/19 09:17 07/11/19 12:18 Humalog SC 2 units .MODERATE SLIDING SC PRN Administration Moderate Correctional Scale Insulin Human Lispro 0 units 07/10/19 09:17 07/10/19 22:39 Humalog SC 5 unit .BEDTIME SLIDING SC PRN Administration Bedtime Correctional Scale Lorazepam 1 mg 07/10/19 12:54 07/10/19 14:59 Ativan SLOW IVP 1 mg Q4H PRN Administration Anxiety/Agitation Prasugrel 10 mg 07/11/19 09:00 07/11/19 10:01 Effient PO 10 mg QAM KAR Administration - Exam Eye: PERRL Heart: RRR, no murmur, no gallops, no rubs, normal peripheral pulses Respiratory: CTAB, no wheezes, no rales, no ronchi, normal chest expansion Gastrointestinal: soft, non-tender, non-distended, normal bowel sounds Extremities: no cyanosis (Left shoulder appears a bit larger than the right, She has decreased range of motion, no bruising, good pulses) Hosp A/P (1) Altered mental status Code(s): R41.82 - ALTERED MENTAL STATUS, UNSPECIFIED Status: Acute (2) Fall Code(s): W19.XXXA - UNSPECIFIED FALL, INITIAL ENCOUNTER Status: Acute (3) Humeral head fracture Code(s): S42.293A - OTH DISP FX OF UPPER END OF UNSP HUMERUS, INIT FOR CLOS FX Status: Acute (4) Peripheral vascular disease Code(s): I73.9 - PERIPHERAL VASCULAR DISEASE, UNSPECIFIED Status: Acute (5) Diabetic neuropathy Code(s): E11.40 - TYPE 2 DIABETES MELLITUS WITH DIABETIC NEUROPATHY, UNSP Status: Acute (6) DM type 2 (diabetes mellitus, type 2) Status: Chronic Qualifiers: Diabetes mellitus prison insulin use: without bag valver use Diabetes mellitus complication status: with unspecified complications - Plan * Altered mental status- ? etiology- unclear if this was a TIA vs. CVA- her symptoms are more localized to the left arm * Left arm pain- found to have a humeral head fracture- will place in a sling * Consult Orthopedic Surgery * She may not be able to lay flat for the MRI due to pain ( from the shoulder) - she clinically appears back to baseline Neurologically. Can either for-go any further [employer] imaging- will leave that decision to Neurology- for now will cancel the MRI * Severe PVD- the patient's daughter tells she had a STENT placed in her left leg about 7-8 months ago at [facility]- will request these records, and consider CV- Surgery consult to see if there has been any significant change * DM- blood glucose is a bit elevated-will add a low dose long acting insulin * Fever- unclear etiology- will hold off on antibiotics- follow-up with blood and urine cultures * HTN- blood pressure is stable * She will need half-way placement vs. Rehab
--- NOTE | 2019-07-11 22:04 | CON ---
DATE OF TELEMEDICINE CONSULTATION: 07/11/2019 CHIEF COMPLAINT: Fall and confusion. HISTORY OF PRESENT ILLNESS: The patient is a 48-year-old lady with diabetes, hypertension, coronary artery disease, and right below-knee amputation. The patient reports she was in the bathroom and she fell backwards in the restroom and fractured her left humerus and she was confused. Her daughter brought her here and she is not sure if she had a prior stroke. At this time, she feels like she is back to her normal self other than severe pain in the left upper extremity. The patient does not report any dizziness, loss of consciousness, seizures, any weakness in her extremities, or double vision, nausea, or vomiting. PREVIOUS MEDICAL HISTORY: Positive for diabetes, hypertension, gallbladder surgery, and coronary artery disease. PAST SURGICAL HISTORY: Positive for cholecystectomy and hysterectomy and amputation of the right leg below-knee amputation about 1 year ago due to diabetes. ALLERGIES: SHE LISTED TRAMADOL, HYDROCODONE, AND ACETAMINOPHEN, BUT SHE STATES THESE ARE NOT TRUE ALLERGIES AND SHE THROWS UP WITH THESE TABLETS. FAMILY HISTORY: She does not remember how old her parents were when they and she got emotional when talking about her parents. Her parents had coronary artery disease and CVA. She has 6 siblings and most of them have hypertension. One brother had prostate cancer. No siblings had strokes. SOCIAL HISTORY: The patient is nonsmoker. No alcohol. She is from her . She has 2 children. HOME MEDICATIONS: Noted. REVIEW OF SYSTEMS: PULMONARY: Negative for shortness of breath and cough. CARDIAC: Negative for chest pain or palpitations. GI: Negative for nausea, vomiting, or diarrhea. NEUROLOGIC: Positive for confusion, which was transient. DERMATOLOGIC: Negative for any bleeding diathesis. OPHTHALMOLOGIC: Negative for any vision issues. ENDOCRINE: Positive for diabetes. LABORATORY WORKUP: White count 13.2, hematocrit 38.5, hemoglobin 13, platelet count 261. Chemistry; sodium 137, potassium 3.4, chloride 102, bicarb 28, BUN 15, creatinine 0.96, glucose 136, and lactic acid 2.7. Triglycerides 518, cholesterol 254, HDL 30, and LDL was not performed due to elevation in triglycerides and her CT of the head did not show any acute stroke. CT angiography was also negative. However, on CT head, she does have patchy white matter nonspecific hyperintensities and she had CT angiography of the head and neck, which was negative for any structural lesions such as vascular stenosis. PHYSICAL EXAMINATION: VITAL SIGNS: Temperature 97.7, pulse 78, respiratory rate 16, O2 saturations 98 %, blood pressure 114/62. GENERAL APPEARANCE: Slightly obese lady, but appears to be in pain. She is very sweet in disposition and she has a right below-knee amputation. CHEST: Clear vesicular breathing. CARDIOVASCULAR: S1 and S2 heard. No murmurs. ABDOMEN: Soft. MUSCULOSKELETAL: She has significant pain and discomfort and left humerus was touched. NEUROLOGIC: Higher intellectual functions. Normal orientation to time, place, and person. Appropriate conversation. Cranial nerves; normal extraocular movements. No facial asymmetry noted. Normal sensation of face bilaterally. Pupils 4 mm, reactive to light. Tongue midline. No atrophy noted. Normal elevation of palate. Hearing normal to finger rub. Motor examination; bulk normal. Tone normal. Strength 5/5 in the right upper extremity, left lower extremity, and also remaining stump of the right lower extremity. She was unable to perform testing in the left arm due to pain. However, distal left arm seemed to be normal. Sensory exam was normal. Deep tendon reflexes were absent. Cerebellar, normal [id number]-gp-[id number] on the right side. IMPRESSION AND PLAN: The patient is a 48-year-old lady with diabetes, hypertension, coronary artery disease, and right below-knee amputation for her leg. She normally uses a wheelchair. She is not sure how she fell, but she fell backwards in the restroom. On examination, she does have left footdrop. Rest of her exam was normal with regard to neurologic exam and we do not know if this footdrop is old or new. At this time, if there is suspicion for cerebrovascular accident, I will go ahead and order MRI of the brain to make sure there is no acute stroke or any acute event. I will follow up on the patient tomorrow based on the MRI results and please call me if you have any further questions. I do think she needs to be on aspirin for stroke prophylaxis. Job ID: [id number] MTDD
[2019-07-11] MEDS: Insulin Glargine 10 UNITS in Pre-Filled Syringe 1 EACH SC SCH (22:07)
[2019-07-11] MEDS: Atorvastatin Calcium 40 MG TAB PO SCH (22:07)
[2019-07-12] MEDS: Acetaminophen/Codeine 30-300mg Tablet PO PRN ×4 (01:15→21:46)
[2019-07-12] MEDS: Sodium Chloride 0.9% 1,000 ML IV SCH (05:24)
[2019-07-12] MEDS ORDERED: Lorazepam 2 MG/ML VIAL SLOW IVP SCH (06:00)
[2019-07-12] MEDS: Carvedilol 6.25 MG TAB PO SCH ×2 (09:28→17:21)
[2019-07-12] MEDS: Prasugrel 10 MG TAB PO SCH (09:28)
[2019-07-12] MEDS: Gabapentin 300 MG CAP PO SCH ×3 (09:28→21:45)
[2019-07-12] MEDS: Aspirin 325 mg Enteric Coated Tablet PO SCH (09:29)
[2019-07-12] MEDS: Enoxaparin Sodium 30 MG/0.3 ML SYRINGE SC SCH (09:29)
--- NOTE | 2019-07-12 12:02 | MRI ---
MRI BRAIN WITHOUT CONTRAST: Date: 07/12/19 HISTORY: TIA. FINDINGS: There are a few tiny foci of restricted diffusion in the right posterior parietal cortex. Multiple fo ci of T2 prolongation in the periventricular white matter consistent with chronic small vessel ischem ic disease. No hemorrhage, midline shift, or abnormal extra-axial fluid collections are seen. The joey tricular size is appropriate and the basilar cisterns are patent. The visualized paranasal sinuses an d mastoid air cells are well aerated. IMPRESSION: A few tiny acute cortical infarctions in the right posterior parietal lobe. POS: [facility]
[2019-07-12] MEDS: HumaLOG 300 UNITS/3 ML VIAL SC PRN (13:11)
--- NOTE | 2019-07-12 14:32 | CON ---
DATE OF CONSULTATION: REQUESTING PHYSICIAN: Dr. Jamal Lane. CONSULTING PHYSICIAN: Dr. Edu Ag. REASON FOR CONSULTATION: Left proximal humerus fracture. BRIEF CLINICAL HISTORY: Flakita is a 48-year-old female, who was admitted to the stroke service by the Medicine Team for evaluation of a fall, which occurred [address] angiography of the brain has been performed and I believe an MRI has been performed, which is pending. She has been seen by Neurology as well. She mobilizes via wheelchair, but somehow was able to fall, landing on the left arm resulting in a proximal humeral neck fracture. Our service has been consulted for evaluation of the fracture. PAST MEDICAL HISTORY: Complicated with diabetes, hypertension, peripheral vascular disease, coronary atherosclerosis, and she has already had a below-knee amputation performed secondary to her diabetes. 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 Plain radiographs obtained of the left shoulder demonstrate an oblique proximal humeral fracture with a little bit of anterior displacement. Significant osteopenia is also appreciated. PHYSICAL EXAMINATION: Visual inspection of left upper extremity demonstrates her to indeed have some bruising around the shoulder and mid brachium. Range of motion is not assessed due to known underlying fracture, but she is quite tender to palpation along the proximal aspect of the brachium circumferentially. I see no subluxation. She is neurovascularly intact in the limb distal to her fracture site. IMAGING STUDIES: Two views of the left shoulder demonstrate an oblique proximal humeral fracture extending below the surgical neck, this is also varus angulated. Comminution is noted at the calcar. Otherwise, humeral head appears to be for the most part intact. I do see a tuberosity fracture. IMPRESSION: Left proximal humerus fracture with varus angulation and anterior displacement. PLAN: At this point, no surgical recommendations are to be made due to the patient's stroke workup. I think she represents a high surgical risk and close treatment is recommended. We will give consideration to a very mild manipulation once her stroke diagnosis stabilizes. Sling is recommended for now immobilization, and we will continue to follow. Job ID: [id number]
--- NOTE | 2019-07-12 19:22 | PDOC.HOSPP ---
- Subjective Encounter Date: 07/12/19 Encounter Time: 19:15 Subjective: f/u s/p fall with apparent small infarcts of R posterior parietal lobe and proximal L humerus fx tx conservatively with arm sling. Continues on ASA/ Lipitor. - Objective Vital Signs & Weight: Vital Signs (12 hours) Temp Pulse Resp BP BP Pulse Ox 07/12/19 17:21 149/72 H 07/12/19 15:50 98.5 F 74 20 149/72 H 97 07/12/19 11:00 99.1 F 81 16 140/69 94 L 07/12/19 09:28 139/70 07/12/19 08:00 93 L Weight Weight 158 lb 3.2 oz I&O: 07/11/19 07/12/19 07/13/19 06:59 06:59 06:59 Intake Total 1020 220 Output Total 1725 200 Balance -705 20 Result Diagrams: 07/11/19 04:11 07/11/19 04:11 Additional Labs: Accuchecks 07/12/19 07/12/19 07/12/19 16:49 11:12 06:05 POC Glucose 149 H 207 H 126 H Microbiology 07/11/19 08:03 Urine voided Urine Culture - Preliminary NO GROWTH AT 24 HOURS 07/10/19 19:31 Venous blood - Right Hand Blood Culture - Preliminary NO GROWTH AT 48 HOURS 07/10/19 19:30 Venous blood - Left Arm Blood Culture - Preliminary NO GROWTH AT 48 HOURS Laboratory Tests 07/10/19 07/10/19 07/11/19 06:30 06:30 04:11 WBC 18.1 H Neutrophils % 84.3 H Sodium 134 L Potassium 4.1 Creatinine 1.14 H Lactic Acid Triglycerides 518 H Cholesterol 254 H HDL Cholesterol 30 Procalcitonin 07/11/19 07/11/19 07/11/19 04:11 04:11 04:11 WBC Neutrophils % 54.5 Sodium Potassium Creatinine Lactic Acid 2.7 H Triglycerides Cholesterol HDL Cholesterol Procalcitonin 1.28 Radiology Reviewed by me: Yes (Echo - EF 60-65%, nl LA, no ASD/PFO) EKG Reviewed by me: Yes (Tele - SR) Hospitalist ROS - Medication Medications: Active Medications Generic Name Dose Route Start Last Admin Trade Name Freq PRN Reason Stop Dose Admin Acetaminophen/Codeine Phosphate 1 tab 07/11/19 14:51 07/12/19 17:20 Tylenol #3 PO 1 tab Q4H PRN Administration Moderate Pain (4-6) Aspirin 325 mg 07/11/19 09:00 07/12/19 09:29 Ecotrin PO 325 mg DAILY KAR Administration Atorvastatin Calcium 40 mg 07/10/19 21:00 07/11/19 22:07 Lipitor PO 40 mg HS KAR Administration Carvedilol 6.25 mg 07/10/19 17:00 07/12/19 17:21 Coreg PO 6.25 mg BID-WM KAR Administration Enoxaparin Sodium 30 mg 07/11/19 09:00 07/12/19 09:29 Lovenox SC 30 mg 0900 KAR Administration Gabapentin 600 mg 07/10/19 15:00 07/12/19 16:06 Neurontin PO 600 mg TID KAR Administration Sodium Chloride 1,000 mls @ 75 mls/hr 07/10/19 17:45 07/12/19 05:24 Normal Saline 0.9% IV 1,000 mls .[id number] KAR Administration Insulin Glargine 10 units/ 0.1 mls @ 0 mls/hr 07/11/19 21:00 07/11/19 22:07 Miscellaneous Medication SC 0.1 mls HS KAR Administration Ibuprofen 600 mg 07/10/19 17:42 07/11/19 10:05 Motrin PO 600 mg Q6H PRN Administration Fever>101/(Mi/Mod/Sev) Pain Insulin Human Lispro 0 units 07/10/19 09:17 07/12/19 13:11 Humalog SC 4 units .MODERATE SLIDING SC PRN Administration Moderate Correctional Scale Insulin Human Lispro 0 units 07/10/19 09:17 07/10/19 22:39 Humalog SC 5 unit .BEDTIME SLIDING SC PRN Administration Bedtime Correctional Scale Lorazepam 1 mg 07/10/19 12:54 07/10/19 14:59 Ativan SLOW IVP 1 mg Q4H PRN Administration Anxiety/Agitation Lorazepam 2 mg 07/12/19 06:00 07/12/19 09:29 Ativan SLOW IVP 07/12/19 23:59 2 mg ONE KAR Administration Prasugrel 10 mg 07/11/19 09:00 07/12/19 09:28 Effient PO 10 mg QAM KAR Administration - Exam General Appearance: NAD, awake alert Eye: PERRL, anicteric sclera ENT: normocephalic atraumatic, no oropharyngeal lesions Neck: supple, symmetric, no JVD, no thyromegaly, no lymphadenopathy Heart: RRR, no murmur, no gallops, no rubs Respiratory: CTAB, no wheezes, no rales, no ronchi, normal chest expansion Gastrointestinal: soft, non-tender, non-distended, normal bowel sounds, no palpable masses Extremities: no cyanosis Extremities - other findings: R BKA, L arm in sling Skin: normal turgor, no lesions Neurological: cranial nerve grossly intact, no new deficit Musculoskeletal: normal tone Psychiatric: normal affect, A&O x 3 Hosp A/P (1) Acute CVA (cerebrovascular accident) Code(s): I63.9 - CEREBRAL INFARCTION, UNSPECIFIED Status: Acute Plan: R post parietal lobe distribution, continue ASA/Lipitor, general stroke protocol , secondary prevention (2) Acute metabolic encephalopathy Code(s): G93.41 - METABOLIC ENCEPHALOPATHY Status: Acute Plan: Improved, likely due to #1 (3) Acute renal failure Status: Acute Qualifiers: Acute renal failure type: with acute tubular necrosis Qualified Code(s): N17.0 - Acute kidney failure with tubular necrosis Plan: Improved, encourage increased po free-H2O intake, avoid nephrotoxic meds and limit contrast exposure (4) Humeral head fracture Code(s): S42.293A - OTH DISP FX OF UPPER END OF UNSP HUMERUS, INIT FOR CLOS FX Status: Acute Plan: conservative mgmt currently with arm sling and immobilization, may need to consider rehab/SNF given limited mobility with wheelchair and now a L humeral fx (5) Fall Code(s): W19.XXXA - UNSPECIFIED FALL, INITIAL ENCOUNTER Status: Acute (6) Peripheral vascular disease Code(s): I73.9 - PERIPHERAL VASCULAR DISEASE, UNSPECIFIED Status: Chronic (7) Diabetic neuropathy Code(s): E11.40 - TYPE 2 DIABETES MELLITUS WITH DIABETIC NEUROPATHY, UNSP Status: Chronic Plan: Continue Neurontin 600mg TID (8) DM type 2 (diabetes mellitus, type 2) Status: Chronic Qualifiers: Diabetes mellitus termite control representative insulin use: without termite control representative use Diabetes mellitus complication status: with unspecified complications Plan: Resume Lantus, ISS, ADA - Plan PT/OT, social and political studies professor, DVT proph w/SCDs Stable currently Continue ASA/Lipitor CM for SNF/Rehab options Continue IVF's Continue Gabapentin 600mg TID AM lab: BMP
[2019-07-12] MEDS: Insulin Glargine 10 UNITS in Pre-Filled Syringe 1 EACH SC SCH (21:45)
[2019-07-12] MEDS: Atorvastatin Calcium 40 MG TAB PO SCH (21:45)
[2019-07-13] MEDS: Acetaminophen/Codeine 30-300mg Tablet PO PRN ×4 (02:25→21:31)
[2019-07-13] MEDS: Sodium Chloride 0.9% 1,000 ML IV SCH ×2 (02:28→17:22)
[2019-07-13] MEDS: Ibuprofen 600 MG TAB PO PRN (04:39)
[2019-07-13 05:43] LABS: Anion Gap 12 mmol/L (10-20); BUN (Urea Nitrogen) 10 mg/dL (7.0-18.7); Calc. Creatinine Clearance 109 mL/min (70-130); Calcium 8.6 mg/dL (7.8-10.44); Carbon Dioxide 22 mmol/L (22-29); Chloride 103 mmol/L (98-107); Estimated GFR-MDRD 87; Glucose 257 mg/dL (70-105); Potassium 3.4 mmol/L (3.5-5.1); Sodium 134 mmol/L (136-145)
[2019-07-13] MEDS: HumaLOG 300 UNITS/3 ML VIAL SC PRN ×3 (06:11→17:27)
[2019-07-13] MEDS: Carvedilol 6.25 MG TAB PO SCH ×2 (08:59→17:25)
[2019-07-13] MEDS: Aspirin 325 mg Enteric Coated Tablet PO SCH (08:59)
[2019-07-13] MEDS: Enoxaparin Sodium 80 MG/0.8 ML SYRINGE SC SCH (09:00)
[2019-07-13] MEDS: Prasugrel 10 MG TAB PO SCH (09:00)
[2019-07-13] MEDS: Gabapentin 300 MG CAP PO SCH ×3 (09:00→21:33)
--- NOTE | 2019-07-13 10:59 | PRG ---
DATE OF TELEMEDICINE SERVICE: 07/13/2019 CHIEF COMPLAINT: Stroke. INTERVAL HISTORY: The patient had an MRI and she does have small strokes on the MRI. She feels severe pain in the left arm even now. She is pending procedure. Her lab workup an MRI update, MRI shows few tiny acute cortical infarctions in the right posterior parietal lobe and her echocardiogram was also completed and she does not have any PFO, ASD, or masses and normal ventricular size. Her lab workup, no updated labs today except for sodium 134, potassium 3.4, chloride 103, bicarb 22 , BUN 10, creatinine 0.72, and glucose 257. PHYSICAL EXAMINATION: VITAL SIGNS: Temperature 99, pulse 78, blood pressure 129/64, respiratory rate 16, and O2 saturations 95. GENERAL APPEARANCE: The patient looks uncomfortable. She has severe pain in the left arm. NEUROLOGIC: Cranial nerve examination, normal extraocular movements. Tongue midline. Motor normal on the right arm and both lower extremities. IMPRESSION AND PLAN: The patient is a 48-year-old lady. She did not have any weakness or numbness from the stroke, but looks like she fell when she suffered the event and then fractured her left humerus. At this time, from a stroke standpoint, she needs to be on aspirin plus statin. She was on baby aspirin at home. I agree with the current plan for 325 mg of aspirin and she can come back, she can see Dr. Jaramillo as outpatient and she also is waiting on treatment plans for her left shoulder fracture. We will see her in-house as needed. Job ID: [id number] MTDD
--- NOTE | 2019-07-13 15:26 | PDOC.HOSPP ---
- Subjective Encounter Date: 07/13/19 Encounter Time: 15:20 Subjective: f/u for CVA involving R posterior parietal lobe on ASA/Lipitor. Remains on L arm sling after sustaining proximal L humeral fx. - Objective Vital Signs & Weight: Vital Signs (12 hours) Temp Pulse Resp BP BP BP BP 07/13/19 12:00 98.3 F 80 16 139/60 07/13/19 11:47 180/79 H 163/74 H 07/13/19 08:59 129/64 07/13/19 08:00 99.0 F 78 16 129/64 07/13/19 06:00 139/70 07/13/19 04:00 98.3 F 82 16 185/82 H Pulse Ox 07/13/19 12:00 96 07/13/19 11:47 07/13/19 08:59 07/13/19 08:00 95 07/13/19 06:00 07/13/19 04:00 97 Weight Weight 158 lb 3.2 oz I&O: 07/12/19 07/13/19 07/14/19 06:59 06:59 06:59 Intake Total 1020 460 Output Total 1725 200 Balance -705 260 Result Diagrams: 07/11/19 04:11 07/13/19 04:47 Additional Labs: Accuchecks 07/13/19 07/13/19 07/12/19 10:57 06:03 20:22 POC Glucose 198 H 260 H 283 H 07/12/19 16:49 POC Glucose 149 H Microbiology 07/11/19 08:03 Urine voided Urine Culture - Preliminary NO GROWTH AT 24 HOURS 07/10/19 19:31 Venous blood - Right Hand Blood Culture - Preliminary NO GROWTH AT 48 HOURS 07/10/19 19:30 Venous blood - Left Arm Blood Culture - Preliminary NO GROWTH AT 48 HOURS Laboratory Tests 07/10/19 07/10/19 07/11/19 06:30 06:30 04:11 WBC 18.1 H Neutrophils % 84.3 H Sodium 134 L Potassium 4.1 Creatinine 1.14 H Lactic Acid Triglycerides 518 H Cholesterol 254 H HDL Cholesterol 30 Procalcitonin 07/11/19 07/11/19 07/11/19 04:11 04:11 04:11 WBC Neutrophils % 54.5 Sodium Potassium Creatinine Lactic Acid 2.7 H Triglycerides Cholesterol HDL Cholesterol Procalcitonin 1.28 EKG Reviewed by me: Yes (Tele - SR) Hospitalist ROS - Medication Medications: Active Medications Generic Name Dose Route Start Last Admin Trade Name Freq PRN Reason Stop Dose Admin Acetaminophen/Codeine Phosphate 1 tab 07/11/19 14:51 07/13/19 15:15 Tylenol #3 PO 1 tab Q4H PRN Administration Moderate Pain (4-6) Aspirin 325 mg 07/11/19 09:00 07/13/19 08:59 Ecotrin PO 325 mg DAILY KAR Administration Atorvastatin Calcium 40 mg 07/10/19 21:00 07/12/19 21:45 Lipitor PO 40 mg HS KAR Administration Carvedilol 6.25 mg 07/10/19 17:00 07/13/19 08:59 Coreg PO 6.25 mg BID-WM KAR Administration Enoxaparin Sodium 70 mg 07/13/19 09:00 07/13/19 09:00 Lovenox SC 70 mg 0900 KAR Administration Gabapentin 600 mg 07/10/19 15:00 07/13/19 15:12 Neurontin PO 600 mg TID KAR Administration Sodium Chloride 1,000 mls @ 75 mls/hr 07/10/19 17:45 07/13/19 02:28 Normal Saline 0.9% IV 1,000 mls .[id number] KAR Administration Insulin Glargine 10 units/ 0.1 mls @ 0 mls/hr 07/11/19 21:00 07/12/19 21:45 Miscellaneous Medication SC 0.1 mls HS KAR Administration Ibuprofen 600 mg 07/10/19 17:42 07/13/19 04:39 Motrin PO 600 mg Q6H PRN Administration Fever>101/(Mi/Mod/Sev) Pain Insulin Human Lispro 0 units 07/10/19 09:17 07/13/19 11:56 Humalog SC 2 units .MODERATE SLIDING SC PRN Administration Moderate Correctional Scale Insulin Human Lispro 0 units 07/10/19 09:17 07/10/19 22:39 Humalog SC 5 unit .BEDTIME SLIDING SC PRN Administration Bedtime Correctional Scale Lorazepam 1 mg 07/10/19 12:54 07/10/19 14:59 Ativan SLOW IVP 1 mg Q4H PRN Administration Anxiety/Agitation Prasugrel 10 mg 07/11/19 09:00 07/13/19 09:00 Effient PO 10 mg QAM KAR Administration - Exam General Appearance: NAD, awake alert Eye: PERRL, anicteric sclera ENT: normocephalic atraumatic, no oropharyngeal lesions Neck: supple, symmetric, no JVD, no thyromegaly, no lymphadenopathy Heart: RRR, no murmur, no gallops, no rubs, normal peripheral pulses Respiratory: CTAB, no wheezes, no rales, no ronchi, normal chest expansion Gastrointestinal: soft, non-tender, non-distended, normal bowel sounds Extremities: no cyanosis Extremities - other findings: L arm sling in place, L shoulder with TTP/edema, R BKA Skin: normal turgor, no lesions Neurological: cranial nerve grossly intact, no new deficit Musculoskeletal: normal tone, generalized weakness Psychiatric: normal affect, A&O x 3 Hosp A/P (1) Acute CVA (cerebrovascular accident) Code(s): I63.9 - CEREBRAL INFARCTION, UNSPECIFIED Status: Acute Plan: Continue ASA/Lipitor, general stroke protocol (2) Acute metabolic encephalopathy Code(s): G93.41 - METABOLIC ENCEPHALOPATHY Status: Acute Plan: Improved, likely due to #1 (3) Acute renal failure Status: Acute Qualifiers: Acute renal failure type: with acute tubular necrosis Qualified Code(s): N17.0 - Acute kidney failure with tubular necrosis Plan: Resolving, avoid nephrotoxic meds (4) Humeral head fracture Code(s): S42.293A - OTH DISP FX OF UPPER END OF UNSP HUMERUS, INIT FOR CLOS FX Status: Acute Plan: L arm sling for comfort, likely will need surgical intervention (5) Fall Code(s): W19.XXXA - UNSPECIFIED FALL, INITIAL ENCOUNTER Status: Acute (6) Peripheral vascular disease Code(s): I73.9 - PERIPHERAL VASCULAR DISEASE, UNSPECIFIED Status: Chronic (7) Diabetic neuropathy Code(s): E11.40 - TYPE 2 DIABETES MELLITUS WITH DIABETIC NEUROPATHY, UNSP Status: Chronic (8) DM type 2 (diabetes mellitus, type 2) Status: Chronic Qualifiers: Diabetes mellitus mcc insulin use: without terminal computer operator use Diabetes mellitus complication status: with unspecified complications - Plan 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
[2019-07-13] MEDS ORDERED: Potassium Chloride 20 MEQ TAB PO SCH (15:30)
[2019-07-13] MEDS ORDERED: FLU VACC QS2019-20(6MOS UP)/PF 60 MCG/0.5 ML SYRINGE IM ONE (16:30)
[2019-07-13] MEDS: Atorvastatin Calcium 40 MG TAB PO SCH (21:33)
[2019-07-13] MEDS: Insulin Glargine 10 UNITS in Pre-Filled Syringe 1 EACH SC SCH (21:33)
[2019-07-14] MEDS: Morphine 2 MG/ML SYRINGE SLOW IVP PRN ×3 (03:30→15:03)
[2019-07-14] MEDS: HumaLOG 300 UNITS/3 ML VIAL SC PRN ×3 (06:04→17:31)
[2019-07-14] MEDS: Enoxaparin Sodium 80 MG/0.8 ML SYRINGE SC SCH (08:31)
[2019-07-14] MEDS: Gabapentin 300 MG CAP PO SCH ×3 (08:34→22:10)
[2019-07-14] MEDS: Carvedilol 6.25 MG TAB PO SCH ×2 (08:34→17:31)
[2019-07-14] MEDS: Potassium Chloride 20 MEQ TAB PO SCH (08:34)
[2019-07-14] MEDS: Prasugrel 10 MG TAB PO SCH (08:35)
[2019-07-14] MEDS: Aspirin 325 mg Enteric Coated Tablet PO SCH (08:35)
[2019-07-14] MEDS: Acetaminophen/Codeine 30-300mg Tablet PO PRN (12:14)
--- NOTE | 2019-07-14 14:04 | PDOC.HOSPP ---
- Subjective Encounter Date: 07/14/19 Encounter Time: 14:00 Subjective: f/u for R posterior parietal lobe CVA and fall with L proximal humerus fx managed currently with sling immobilization. Feels ok overall except for L shoulder pain. - Objective Vital Signs & Weight: Vital Signs (12 hours) Temp Pulse Pulse Pulse Resp BP BP 07/14/19 12:09 82 79 194/90 H 07/14/19 12:07 98.1 F 82 13 07/14/19 08:34 144/77 H 07/14/19 08:30 79 07/14/19 08:08 98.3 F 80 16 07/14/19 03:16 98.6 F 78 16 BP BP BP Pulse Ox 07/14/19 12:09 174/79 H 07/14/19 12:07 194/90 H 99 07/14/19 08:34 07/14/19 08:30 144/77 H 07/14/19 08:08 221/98 H 100 07/14/19 03:16 193/88 H 98 Weight Weight 158 lb 3.2 oz I&O: 07/13/19 07/14/19 07/15/19 06:59 06:59 06:59 Intake Total 460 1435 Output Total 200 1100 Balance 260 335 Result Diagrams: 07/11/19 04:11 07/13/19 04:47 Additional Labs: Accuchecks 07/14/19 07/14/19 07/13/19 10:44 06:01 20:22 POC Glucose 223 H 235 H 248 H 07/13/19 16:53 POC Glucose 179 H Microbiology 07/11/19 08:03 Urine voided Urine Culture - Preliminary NO GROWTH AT 24 HOURS 07/10/19 19:31 Venous blood - Right Hand Blood Culture - Preliminary NO GROWTH AT 48 HOURS 07/10/19 19:30 Venous blood - Left Arm Blood Culture - Preliminary NO GROWTH AT 48 HOURS Laboratory Tests 07/10/19 07/10/19 07/11/19 06:30 06:30 04:11 WBC 18.1 H Neutrophils % 84.3 H Sodium 134 L Potassium 4.1 Creatinine 1.14 H Lactic Acid Triglycerides 518 H Cholesterol 254 H HDL Cholesterol 30 Procalcitonin 07/11/19 07/11/19 07/11/19 04:11 04:11 04:11 WBC Neutrophils % 54.5 Sodium Potassium Creatinine Lactic Acid 2.7 H Triglycerides Cholesterol HDL Cholesterol Procalcitonin 1.28 EKG Reviewed by me: Yes (Tele - SR) Hospitalist ROS - Medication Medications: Active Medications Generic Name Dose Route Start Last Admin Trade Name Freq PRN Reason Stop Dose Admin Acetaminophen/Codeine Phosphate 1 tab 07/11/19 14:51 07/14/19 12:14 Tylenol #3 PO 1 tab Q4H PRN Administration Moderate Pain (4-6) Aspirin 325 mg 07/11/19 09:00 07/14/19 08:35 Ecotrin PO 325 mg DAILY KAR Administration Atorvastatin Calcium 40 mg 07/10/19 21:00 07/13/19 21:33 Lipitor PO 40 mg HS KAR Administration Carvedilol 6.25 mg 07/10/19 17:00 07/14/19 08:34 Coreg PO 6.25 mg BID-WM KAR Administration Enoxaparin Sodium 70 mg 07/13/19 09:00 07/14/19 08:31 Lovenox SC 70 mg 0900 KAR Administration Gabapentin 600 mg 07/10/19 15:00 07/14/19 08:34 Neurontin PO 600 mg TID KAR Administration Insulin Glargine 10 units/ 0.1 mls @ 0 mls/hr 07/11/19 21:00 07/13/19 21:33 Miscellaneous Medication SC 0.1 mls HS KAR Administration Sodium Chloride 1,000 mls @ 50 mls/hr 07/13/19 15:31 07/13/19 17:22 Normal Saline 0.9% IV 1,000 mls .Q20H KAR Administration Ibuprofen 600 mg 07/10/19 17:42 07/13/19 04:39 Motrin PO 600 mg Q6H PRN Administration Fever>101/(Mi/Mod/Sev) Pain Insulin Human Lispro 0 units 07/10/19 09:17 07/14/19 06:04 Humalog SC 4 units .MODERATE SLIDING SC PRN Administration Moderate Correctional Scale Insulin Human Lispro 0 units 07/10/19 09:17 07/10/19 22:39 Humalog SC 5 unit .BEDTIME SLIDING SC PRN Administration Bedtime Correctional Scale Lorazepam 1 mg 07/10/19 12:54 07/10/19 14:59 Ativan SLOW IVP 1 mg Q4H PRN Administration Anxiety/Agitation Morphine Sulfate 2 mg 07/14/19 03:08 07/14/19 08:32 Morphine SLOW IVP 2 mg Q4H PRN Administration Moderate Pain (4-6) Potassium Chloride 40 meq 07/14/19 08:00 07/14/19 08:34 K-Dur PO 40 meq QAM-WM KAR Administration Prasugrel 10 mg 07/11/19 09:00 07/14/19 08:35 Effient PO 10 mg QAM KAR Administration - Exam General Appearance: NAD, awake alert Eye: PERRL, anicteric sclera ENT: normocephalic atraumatic, no oropharyngeal lesions Neck: supple, symmetric, no JVD, no thyromegaly, no lymphadenopathy Heart: RRR, no murmur, no gallops, no rubs, normal peripheral pulses Respiratory: CTAB, no wheezes, no rales, no ronchi Gastrointestinal: soft, non-tender, non-distended, normal bowel sounds Extremities: no cyanosis, no clubbing Extremities - other findings: L shoulder with edema and TTP, limited ROM, R BKA Skin: normal turgor, no lesions Neurological: cranial nerve grossly intact, no new deficit Musculoskeletal: normal tone, generalized weakness Psychiatric: normal affect, A&O x 3 Hosp A/P (1) Acute CVA (cerebrovascular accident) Code(s): I63.9 - CEREBRAL INFARCTION, UNSPECIFIED Status: Acute Plan: Continue ASA/Lipitor, general stroke protocol (2) Acute metabolic encephalopathy Code(s): G93.41 - METABOLIC ENCEPHALOPATHY Status: Acute Plan: Resolved (3) Acute renal failure Status: Acute Qualifiers: Acute renal failure type: with acute tubular necrosis Qualified Code(s): N17.0 - Acute kidney failure with tubular necrosis Plan: Resolved (4) Humeral head fracture Code(s): S42.293A - OTH DISP FX OF UPPER END OF UNSP HUMERUS, INIT FOR CLOS FX Status: Acute Qualifiers: Laterality: left Plan: Immobilize with sling, plan for surgical intervention in near future (5) Fall Code(s): W19.XXXA - UNSPECIFIED FALL, INITIAL ENCOUNTER Status: Acute Plan: PT/OT for functional mobility, difficult given R BKA and L humerus fx (6) Peripheral vascular disease Code(s): I73.9 - PERIPHERAL VASCULAR DISEASE, UNSPECIFIED Status: Chronic (7) Diabetic neuropathy Code(s): E11.40 - TYPE 2 DIABETES MELLITUS WITH DIABETIC NEUROPATHY, UNSP Status: Chronic (8) DM type 2 (diabetes mellitus, type 2) Status: Chronic Qualifiers: Diabetes mellitus exterminator helper insulin use: without long-term use Diabetes mellitus complication status: with unspecified complications - Plan PT/OT, 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
[2019-07-14] MEDS: Sodium Chloride 0.9% 1,000 ML IV SCH (16:12)
[2019-07-14] MEDS: Lidocaine 5% Patch TD SCH (17:31)
[2019-07-14] MEDS: Atorvastatin Calcium 40 MG TAB PO SCH (22:10)
[2019-07-14] MEDS: Insulin Glargine 10 UNITS in Pre-Filled Syringe 1 EACH SC SCH (22:10)
[2019-07-14] MEDS: Ketorolac Tromethamine 30 MG/ML VIAL IVP PRN (22:16)
[2019-07-15] MEDS: Lidocaine Patch Removal 1 EACH TOP SCH (03:30)
[2019-07-15] MEDS: Ketorolac Tromethamine 30 MG/ML VIAL IVP PRN ×3 (03:44→18:01)
[2019-07-15 04:17] LABS: Anion Gap 11 mmol/L (10-20); BUN (Urea Nitrogen) 8 mg/dL (7.0-18.7); Calc. Creatinine Clearance 116 mL/min (70-130); Calcium 8.7 mg/dL (7.8-10.44); Carbon Dioxide 24 mmol/L (22-29); Chloride 105 mmol/L (98-107); Estimated GFR-MDRD Greater than 90; Glucose 176 mg/dL (70-105); Potassium 4.3 mmol/L (3.5-5.1); Sodium 136 mmol/L (136-145)
[2019-07-15] MEDS: HumaLOG 300 UNITS/3 ML VIAL SC PRN ×3 (07:55→18:00)
[2019-07-15] MEDS: Aspirin 325 mg Enteric Coated Tablet PO SCH (09:27)
[2019-07-15] MEDS: Prasugrel 10 MG TAB PO SCH (09:27)
[2019-07-15] MEDS: Potassium Chloride 20 MEQ TAB PO SCH (09:27)
[2019-07-15] MEDS: Gabapentin 300 MG CAP PO SCH ×3 (09:28→20:25)
[2019-07-15] MEDS: Carvedilol 6.25 MG TAB PO SCH ×2 (09:28→18:00)
[2019-07-15] MEDS: Enoxaparin Sodium 80 MG/0.8 ML SYRINGE SC SCH (10:10)
[2019-07-15] MEDS: Lidocaine 5% Patch TD SCH (15:05)
[2019-07-15] MEDS: Morphine 2 MG/ML SYRINGE SLOW IVP PRN (15:06)
--- NOTE | 2019-07-15 18:11 | PDOC.HOSPP ---
- Subjective Encounter Date: 07/15/19 Subjective: Pt seen today says she feels better , non compliance with diet and c/o pain left shoulder pain does not prefer po pain meds - Objective Vital Signs & Weight: Vital Signs (12 hours) Temp Pulse Pulse Pulse Resp BP BP 07/15/19 15:48 98.1 F 80 21 H 07/15/19 12:00 98.3 F 84 18 07/15/19 10:12 215/93 H 07/15/19 09:49 81 88 211/94 H 07/15/19 09:28 192/83 H 07/15/19 08:00 98.1 F 76 20 BP BP Pulse Ox Pulse Ox Pulse Ox 07/15/19 15:48 172/84 H 98 07/15/19 12:00 181/83 H 96 07/15/19 10:12 07/15/19 09:49 215/93 H 97 97 07/15/19 09:28 07/15/19 08:00 192/84 H 98 Weight Weight 158 lb 3.2 oz I&O: 07/14/19 07/15/19 07/16/19 06:59 06:59 06:59 Intake Total 1435 2631 Output Total 1100 2720 880 Balance 584 -66 -386 Result Diagrams: 07/11/19 04:11 07/15/19 03:40 Additional Labs: Accuchecks 07/15/19 07/15/19 07/15/19 16:54 10:44 05:57 POC Glucose 207 H 289 H 213 H 07/14/19 20:43 POC Glucose 200 H Hospitalist ROS - Review of Systems Constitutional: denies: fever Eyes: denies: pain ENT: denies: ear pain Respiratory: denies: cough Cardiovascular: denies: chest pain Gastrointestinal: denies: nausea Genitourinary: denies: dysuria Musculoskeletal: reports: shoulder pain Neurological: denies: weakness - Medication Medications: Active Medications Generic Name Dose Route Start Last Admin Trade Name Freq PRN Reason Stop Dose Admin Acetaminophen/Codeine Phosphate 1 tab 07/11/19 14:51 07/14/19 12:14 Tylenol #3 PO 1 tab Q4H PRN Administration Moderate Pain (4-6) Aspirin 325 mg 07/11/19 09:00 07/15/19 09:27 Ecotrin PO 325 mg DAILY KAR Administration Atorvastatin Calcium 40 mg 07/10/19 21:00 07/14/19 22:10 Lipitor PO 40 mg HS KAR Administration Carvedilol 6.25 mg 07/10/19 17:00 07/15/19 09:28 Coreg PO 6.25 mg BID-WM KAR Administration Enoxaparin Sodium 70 mg 07/13/19 09:00 07/15/19 10:10 Lovenox SC 70 mg 0900 KAR Administration Gabapentin 600 mg 07/10/19 15:00 07/15/19 15:05 Neurontin PO 600 mg TID KAR Administration Hydralazine HCl 10 mg 07/10/19 09:17 07/15/19 10:12 Apresoline SLOW IVP 10 mg Q4H PRN Administration BP > 220/110 Insulin Glargine 10 units/ 0.1 mls @ 0 mls/hr 07/11/19 21:00 07/14/19 22:10 Miscellaneous Medication SC 0.1 mls HS KAR Administration Insulin Human Lispro 0 units 07/10/19 09:17 07/15/19 11:35 Humalog SC 6 units .MODERATE SLIDING SC PRN Administration Moderate Correctional Scale Insulin Human Lispro 0 units 07/10/19 09:17 07/10/19 22:39 Humalog SC 5 unit .BEDTIME SLIDING SC PRN Administration Bedtime Correctional Scale Ketorolac Tromethamine 30 mg 07/14/19 14:30 07/15/19 10:11 Toradol IVP 07/19/19 14:31 30 mg Q6H PRN Administration Pain Lidocaine 2 patch 07/14/19 15:00 07/15/19 15:05 Lidoderm 5% Patch TD 2 patch 1500 KAR Administration Lorazepam 1 mg 07/10/19 12:54 07/10/19 14:59 Ativan SLOW IVP 1 mg Q4H PRN Administration Anxiety/Agitation Miscellaneous Medication 1 each 07/15/19 03:00 07/15/19 03:30 Lidocaine Patch Removal TOP 1 each 0300 KAR Administration Morphine Sulfate 2 mg 07/14/19 03:08 07/15/19 15:06 Morphine SLOW IVP 2 mg Q4H PRN Administration Moderate Pain (4-6) Potassium Chloride 40 meq 07/14/19 08:00 07/15/19 09:27 K-Dur PO 40 meq QAM-WM KAR Administration Prasugrel 10 mg 07/11/19 09:00 07/15/19 09:27 Effient PO 10 mg QAM KAR Administration - Exam General Appearance: awake alert Eye: anicteric sclera ENT: normocephalic atraumatic Neck: supple Heart: no murmur Respiratory: no wheezes Gastrointestinal: soft Extremities: no cyanosis Neurological: cranial nerve grossly intact, no focal deficits Musculoskeletal: normal tone Hosp A/P - Plan Acute CVA (cerebrovascular accident) Continue effient /Lipitor, general stroke protocol Acute metabolic encephalopathy multifactorial CVA, Dehydration related improving Humeral head fracture Immobilize with sling, plan for surgical intervention in near future HTN Continue to monitor added lisinopril DM type 2 Uncontrolled Non complaince with having soda Counseled compliance with diet DVT/GI Prophyalxsis Functional Decline Pending disposition
[2019-07-15] MEDS ORDERED: Lisinopril 5 MG TAB PO SCH (18:15)
[2019-07-15] MEDS: Atorvastatin Calcium 40 MG TAB PO SCH (20:25)
[2019-07-15] MEDS: Famotidine 20 MG TAB PO SCH (20:25)
[2019-07-15] MEDS: Insulin Glargine 10 UNITS in Pre-Filled Syringe 1 EACH SC SCH (20:29)
[2019-07-16] MEDS: Ketorolac Tromethamine 30 MG/ML VIAL IVP PRN ×3 (00:39→12:41)
[2019-07-16] MEDS: Morphine 2 MG/ML SYRINGE SLOW IVP PRN ×2 (03:48→10:33)
[2019-07-16] MEDS: Lidocaine Patch Removal 1 EACH TOP SCH (03:48)
[2019-07-16] MEDS: HumaLOG 300 UNITS/3 ML VIAL SC PRN ×3 (06:08→16:39)
[2019-07-16] MEDS ORDERED: HumaLOG 300 UNITS/3 ML VIAL SC PRN (08:55)
[2019-07-16] MEDS ORDERED: Dextrose 50% Abboject 50 ML SYRINGE SLOW IVP PRN (08:55)
[2019-07-16] MEDS ORDERED: Dextrose 5% in Water 1,000 ML IV PRN (08:55)
[2019-07-16] MEDS ORDERED: Insulin Glargine 25 UNITS in Pre-Filled Syringe 1 EACH SC SCH (09:00)
[2019-07-16] MEDS ORDERED: Lisinopril 5 MG TAB PO SCH (09:00)
[2019-07-16] MEDS: Enoxaparin Sodium 80 MG/0.8 ML SYRINGE SC SCH (10:30)
[2019-07-16] MEDS: Carvedilol 6.25 MG TAB PO SCH ×2 (10:31→16:36)
[2019-07-16] MEDS: Aspirin 325 mg Enteric Coated Tablet PO SCH (10:31)
[2019-07-16] MEDS: Potassium Chloride 20 MEQ TAB PO SCH (10:31)
[2019-07-16] MEDS: Famotidine 20 MG TAB PO SCH (10:31)
[2019-07-16] MEDS: Gabapentin 300 MG CAP PO SCH ×2 (10:31→16:34)
[2019-07-16] MEDS: Prasugrel 10 MG TAB PO SCH (10:31)
[2019-07-16 11:56] VITALS: TEMP 98.6
[2019-07-16] MEDS ORDERED: Lice Shampoo 120 ML BOT TOP SCH (14:00)
[2019-07-16] MEDS: Lidocaine 5% Patch TD SCH (15:58)
[2019-07-16 16:53] VITALS: BP 158/60
--- NOTE | 2019-07-17 02:12 | DIS ---
DATE OF ADMISSION: 07/10/2019 DATE OF DISCHARGE: 07/16/2019 DISCHARGE DIAGNOSES: 1. Acute CVA. 2. Acute metabolic encephalopathy, multifactorial, most likely due to CVA, dehydration. 3. Left humeral head fracture. 4. Hypertension. 5. Diabetes mellitus. 6. Peripheral vascular disease. 7. History of right below knee amputation. PHYSICAL EXAMINATION: VITAL SIGNS: Blood pressure 146/56, temperature 98.6, pulse 70, respirations 14, and O2 saturation 97%. GENERAL: The patient is alert, awake, oriented. NECK: Supple. No JVD. No lymphadenopathy. CHEST: Normal vesicular breathing. HEART: Sounds normal. ABDOMEN: Soft. Right BKA. Left sling placement. LABORATORY DATA: CBC unremarkable except white blood cell 13.2, hemoglobin 13.0. Blood glucose 265. BMP unremarkable. Cholesterol 254, LDL too numerous to count, triglycerides 518. Echocardiogram, ejection fraction 60% to 65%. Normal right ventricular size and function. No obvious intracardiac thrombi, masses, PFO, or ASD. Tiny acute cortical infarction in the right posterior parietal lobe in MRI brain. Abdominal aorta runoff, atherosclerotic changes involving the abdominal aorta with luminal narrowing in the distal abdominal aorta. High-grade stenosis in the left common iliac just beyond its regional left femoral-popliteal graft is patent. Occlusion of the right posterior tibial mid calf region. Occulusion of the right superficial femoral artery with reconstitution of the right popliteal. Incidentally noted on soft tissue evaluation is thickening of urinary bladder wall. HOSPITAL SUMMARY: Patient, Juarez Boggs, with a history of peripheral vascular disease, noncompliant diabetes mellitus, hypertension, noncompliance with the medications and diet, presented with confusion and dizziness and status post fall. Patient's MRI was positive for acute tiny infarct in right parietal region. Patient also had left humeral head fracture. Patient evaluated by Neuro. Echo was performed which was normal. Patient was performed CT of left shoulder, which showed left humeral neck fracture. Patient evaluated by Ortho, Dr. Liz Arceo, and Neuro. Ortho recommended to follow up as outpatient post stroke rehab. Patient is currently noncompliant with the diet and medications and being treated with insulin, having sodas in the room. The patient being discharged to long term and advised to follow up outpatient with Neuro and Ortho and Vascular Surgery for her peripheral vascular disease. Patient being discharged in a stable condition. Job ID: [id number]
[2019-07-19] MEDS ORDERED: Ibuprofen 600 MG TAB PO PRN (15:00)
== END 2019-07-16 18:02 | DRG 64 ==
LOC: ERS 05:42 → ERHOLD 07:46 → 2SE 11:00
PROVIDERS: ADMIT Internal Medicine; ATTEND Internal Medicine
DX: I63.9 Cerebral infarction, unspecified (principal); G93.41 Metabolic encephalopathy; N17.0 Acute kidney failure with tubular necrosis; S42.202A Unspecified fracture of upper end of left humerus, initial encounter for closed fracture; G81.94 Hemiplegia, unspecified affecting left nondominant side; E86.0 Dehydration; I10 Essential (primary) hypertension; I73.9 Peripheral vascular disease, unspecified; I25.10 Atherosclerotic heart disease of native coronary artery without angina pectoris; E11.40 Type 2 diabetes mellitus with diabetic neuropathy, unspecified; W18.39XA Other fall on same level, initial encounter; F17.210 Nicotine dependence, cigarettes, uncomplicated; R29.810 Facial weakness; E11.51 Type 2 diabetes mellitus with diabetic peripheral angiopathy without gangrene; R40.2412 Glasgow coma scale score 13-15, at arrival to emergency department; Z89.511 Acquired absence of right leg below knee; Z91.19 Patient's noncompliance with other medical treatment and regimen; I25.2 Old myocardial infarction; Z90.49 Acquired absence of other specified parts of digestive tract; Z95.5 Presence of coronary angioplasty implant and graft; Z90.710 Acquired absence of both cervix and uterus
CPT/HCPCS: 36415; 36416; 70450; 70496; 70498; 70551; 71045; 75635; 80048; 80053; 80061; 82553; 83605; 84145; 84484; 85025; 87040; 87086; 93005; 93306; 93923; 96372; J0360; J1650; J1815; J1885; J2060; J2270; Q9967

== ENCOUNTER 2019-07-22 12:37 | Emergency (ER) | payer MEDICARE ==
[2019-07-22] MEDS ORDERED: Fentanyl 100 MCG/2 ML VIAL ONE (14:04)
--- NOTE | 2019-07-22 14:11 | RAD ---
XR Elbow Lt 2 View INDICATION: Left elbow pain and injury FINDINGS: Bones: There is diffuse osteopenia. No acute fracture or subluxation demonstrated. Joints: No joint capsular distention is evident. Soft tissues: There is diffuse soft tissue swelling the distal arm, elbow and proximal forearm. IMPRESSION: No acute osseous abnormality.
--- NOTE | 2019-07-22 14:13 | RAD ---
XR Shoulder Lt 3 View STANDARD: 07/22/2019 1:36 PM CLINICAL INDICATION: History of left humeral fracture. COMPARISON: July 11, 2019 FINDINGS: Bones: The previously seen surgical neck fracture is again noted. There is slight increased medial di splacement distal humeral shaft fracture fragment proximal one half shaft width. No additional fractures evident. Greater tuberosity fracture component appears stable. Glenohumeral joint: Normal alignment. AC joint: Normal alignment. Visualized lung: Clear. Soft tissues: Within normal limits. IMPRESSION: Three-part proximal left humerus fracture. Mild interval displacement of the proximal left humeral romero rgical neck fracture component.
== END 2019-07-22 16:36 ==
LOC: ERS 12:37
DX: S42.232A 3-part fracture of surgical neck of left humerus, initial encounter for closed fracture (principal); E11.9 Type 2 diabetes mellitus without complications; F17.210 Nicotine dependence, cigarettes, uncomplicated; W17.89XA Other fall from one level to another, initial encounter
CPT/HCPCS: 24655; J3010